=== PATIENT | female | born 1955 | race Caucasian/White ===

== ENCOUNTER → 2017-10-18 | Outpatient (CLI) | payer BC ==
--- NOTE | 2017-10-19 13:54 | MM ---
Reason for exam: screening (asymptomatic). Last mammogram was performed 1 year and 9 months ago. History: Patient is postmenopausal. Took estrogen for 4 years beginning at age 39. Physical Findings: A clinical breast exam by your physician is recommended on an annual basis and results should be correlated with mammographic findings. MG Screening Mammo w CAD Bilateral CC and MLO view(s) were taken. Prior study comparison: January 13, 2016, bilateral MG 3d screening mammo w/cad. August 04, 2013, [facility] DIGITAL RIGHT MAMMOGRAM w/CAD. The breast tissue is heterogeneously dense. This may lower the sensitivity of mammography. There are there are 3 right upper outer quadrant and upper central right breast masses appearing stable from 2016. There is a benign left oil cyst and bilateral benign calcifications. No suspicious abnormality. No significant changes when compared with prior studies. ASSESSMENT: Benign, BI-RAD 2 RECOMMENDATION: Routine screening mammogram of both breasts in 1 year.
== END | disposition home or self-care (01) ==
LOC: RADMAMWWP 12:51
PROVIDERS: ATTEND Family Medicine
DX: Z12.31 Encounter for screening mammogram for malignant neoplasm of breast (principal)
CPT/HCPCS: 77067

== ENCOUNTER 2018-03-08 08:36 | Day surgery (SDC) | payer BC ==
[2018-03-02 08:56] VITALS: BMI 33.6
[~2018-03-08 08:36] MED LIST: LACTATED RINGERS 1,000 ML IV SCH; LIDOCAINE 1% 20 ML VIAL (10MG/ML) FOR IV START INTRADERMA PRN
[2018-03-08 09:23] VITALS: RESP 16; TEMP 97
[2018-03-08] MEDS ORDERED: PROPOFOL 10 MG/ML 20 ML VIAL IV ONE (09:27)
[2018-03-08] MEDS ORDERED: LIDOCAINE 1% INJ 10MG/ML (20 ML MDV) ONE (09:27)
--- NOTE | 2018-03-08 09:37 | P.GSHP ---
History of Present Illness H&P Date: 03/08/18 Chief Complaint: GERD 's is a 63-year-old female referred from Dr. Jaquez. Patient has safer EGD. She 's had issues with GERD. Past Medical History Past Medical History: GERD/Reflux, Hyperlipidemia History of Any Multi-Drug Resistant Organisms: None Reported Past Surgical History: Joint Replacement, Orthopedic Surgery Additional Past Surgical History / Comment(s): BILAT TKA. BILAT BUNIONECTOMY. COLONOSCOPY AND EGD Past Anesthesia/Blood Transfusion Reactions: No Reported Reaction Smoking Status: Former smoker - Past Family History Mother Family Medical History: No Reported History Medications and Allergies Home Medications Medication Instructions Recorded Confirmed Type Atorvastatin [Lipitor] 20 mg PO DAILY 03/02/18 03/02/18 History Omeprazole 20 mg PO DAILY 03/02/18 03/02/18 History Allergies Allergy/AdvReac Type Severity Reaction Status Date / Time METAL Allergy ITCHING Uncoded 03/08/18 09:14 AND RASH Surgical - Exam Vital Signs Temp Pulse Resp BP Pulse Ox 97 F L 62 16 133/71 98 03/08/18 09:15 03/08/18 09:15 03/08/18 09:15 03/08/18 09:15 03/08/18 09:15 - General well developed, no distress - Eyes PERRL - ENT normal pinna - Neck no masses - Respiratory normal expansion - Cardiovascular Rhythm: regular Assessment and Plan Assessment: GERD. We'll perform EGD.
--- NOTE | 2018-03-08 09:44 | P.OP ---
Date of Procedure: 03/08/18 Preoperative Diagnosis: EGD Postoperative Diagnosis: Antral gastritis Mild esophagitis Procedure(s) Performed: EGD Anesthesia: MAC Surgeon: Ajay Edward Pathology: other (Antrum, esophagus) Condition: stable Disposition: PACU Description of Procedure: Patient's placed on the endoscopy table in the lateral position. She received IV sedation. The gastroscope placed oropharynx passed in the esophagus and stomach. Scope was then placed through the pylorus. The first and second portion of the duodenum appeared normal. Scope was then brought back the antrum and this appeared mildly inflamed. A biopsies performed. Scope was unretroflexed and remainder some appeared normal. The GE junction was at 39 cm. A significant hiatal hernia could not be seen. The distal esophagus appeared mildly inflamed and a biopsies performed. The proximal esophagus appeared normal. Scope was withdrawn for patient.
[2018-03-08 10:08] VITALS: BP 110/72; PULSE 72
== END 2018-03-08 10:48 | disposition home or self-care (01) ==
LOC: ORWHC2ENDO 08:36
PROVIDERS: ATTEND Surgery
DX: K21.0 Gastro-esophageal reflux disease with esophagitis (principal); K29.50 Unspecified chronic gastritis without bleeding; E78.5 Hyperlipidemia, unspecified; Z91.09 Other allergy status, other than to drugs and biological substances; Z79.899 Other long term (current) drug therapy; Z87.891 Personal history of nicotine dependence; Z96.653 Presence of artificial knee joint, bilateral
CPT/HCPCS: 43239; J2001; J2704; 88305

== ENCOUNTER → 2018-04-01 | Outpatient (CLI) | payer BC ==
--- NOTE | 2018-04-01 12:59 | FL ---
ESOPHOGRAM. HISTORY: Dysphagia Esophagram was performed per the air contrast technique. The patient swallowed barium and effervesce nt crystals without difficulty or delay. Esophageal peristalsis and motility appear to be within normal limits. There is no evidence for filling defect, mass or diverticulum. Reducible sliding type hiatal hernia. Gastroesophageal junction appears generally. No definite reflux identified during the course of the examination. Subsequently single contrast cervical esophagram was performed which fails demonstrate evidence for a spiration penetration or mass. IMPRESSION: Reducible sliding type hiatal hernia. Gastroesophageal junction appears generally. No def inite reflux identified during the course of the examination.
== END ==
LOC: RADFLWHC 09:29
PROVIDERS: ATTEND Surgery
DX: K44.9 Diaphragmatic hernia without obstruction or gangrene (principal)
CPT/HCPCS: 74220

== ENCOUNTER → 2018-04-07 | Outpatient (CLI) | payer BC ==
[2018-04-07 16:12] LABS: Basophils # (A) 0.1 k/uL (0-0.2); Basophils % (A) 1 %; Eosinophils # (A) 0.2 k/uL (0-0.7); Eosinophils % (A) 2 %; HCT 38.5 % (34.0-46.0); HGB 12.3 gm/dL (11.4-16.0); Lymphocytes % (A) 33 %; MCH 29.7 pg (25.0-35.0); MCV 92.8 fL (80.0-100.0); Mean Platelet Volume 7.7; Monocytes # (A) 0.5 k/uL (0-1.0); Monocytes % (A) 6 %; Neutrophils # (A) 5.1 k/uL (1.3-7.7); Neutrophils % (A) 57 %; Platelet Count 346 k/uL (150-450); RBC 4.14 m/uL (3.80-5.40); RDW 13.4 % (11.5-15.5); WBC 8.9 k/uL (3.8-10.6)
== END | disposition home or self-care (01) ==
LOC: LABPAT 14:06
PROVIDERS: ATTEND Surgery
DX: Z01.810 Encounter for preprocedural cardiovascular examination (principal); Z01.812 Encounter for preprocedural laboratory examination
CPT/HCPCS: 85025; 93005

== ENCOUNTER 2018-04-11 08:07 | Inpatient (IN) | payer BC ==
[2018-04-06 10:52] VITALS: BMI 33.6
[~2018-04-11 08:07] MED LIST changes: +DEXAMETHASONE SOD PHOSPHATE 10 MG/ML 1 ML VIAL IV ONE; +HEPARIN SODIUM,PORCINE 5,000 UNIT/ML 1 ML VIAL SQ ONE; -LACTATED RINGERS 1,000 ML IV SCH; -LIDOCAINE 1% 20 ML VIAL (10MG/ML) FOR IV START INTRADERMA PRN; +MIDAZOLAM 2 MG/2 ML VIAL IV PRN; +ONDANSETRON 4 MG/2 ML VIAL IVP ONE; +ceFAZolin IN SWFI 2 GM/20 ML SYRINGE IVP ONE; +fentaNYL (PF) 50 MCG/ML 2 ML AMP IV PRN
[2018-04-11] MEDS: LACTATED RINGERS 1,000 ML IV SCH ×2 (08:36→11:49)
[2018-04-11] MEDS ORDERED: LIDOCAINE 1% 20 ML VIAL (10MG/ML) FOR IV START INTRADERMA ONE (08:36)
[2018-04-11] MEDS ORDERED: DEXAMETHASONE SOD PHOS (MDV) 100 MG/10 ML VIAL IVP ONE (08:37)
[2018-04-11] MEDS ORDERED: ONDANSETRON 4 MG/2 ML VIAL IVP ONE (08:38)
[2018-04-11] MEDS ORDERED: SCOPOLAMINE 1.5MG/72HR PATCH TRANSDERM ONE (08:39)
--- NOTE | 2018-04-11 09:27 | P.GSHP ---
History of Present Illness H&P Date: 04/11/18 Chief Complaint: GERD This is a 63-year-old female referred from Dr. Shantaun Jaquez. MThe patient has had long-standing problems with reflux esophagitis. The patient underwent recent EGD is found have evidence of esophagitis. Patient has been well informed on the procedure of laparoscopic Zahra fundoplication. The patient is aware the risk of the conversion to the open procedure, risk of injury to the stomach, liver and spleen. The patient is also a risk of recurrent GERD and dysphagia symptoms. The patient understands there is a postoperative diet of full liquids for 2 weeks after surgery. Past Medical History Past Medical History: GERD/Reflux, Hyperlipidemia History of Any Multi-Drug Resistant Organisms: None Reported Past Surgical History: Joint Replacement, Orthopedic Surgery Additional Past Surgical History / Comment(s): BILAT TKA. BILAT BUNIONECTOMY. COLONOSCOPY AND EGD Past Anesthesia/Blood Transfusion Reactions: No Reported Reaction Smoking Status: Former smoker - Past Family History Mother Family Medical History: No Reported History Medications and Allergies Home Medications Medication Instructions Recorded Confirmed Type Atorvastatin [Lipitor] 20 mg PO DAILY 03/02/18 04/06/18 History Omeprazole 20 mg PO DAILY 03/02/18 04/11/18 History Allergies Allergy/AdvReac Type Severity Reaction Status Date / Time METAL Allergy ITCHING Uncoded 04/11/18 08:22 AND RASH Surgical - Exam Vital Signs Temp Pulse Resp BP Pulse Ox 97.7 F 73 18 141/70 98 04/11/18 08:28 04/11/18 08:28 04/11/18 08:28 04/11/18 08:28 04/11/18 08:28 - General well developed, well nourished - Eyes PERRL - ENT normal pinna - Neck no masses - Respiratory normal expansion - Cardiovascular Rhythm: regular - Abdomen Abdomen: soft, non tender Assessment and Plan Assessment: GERD. We'll perform laparoscopic Zahra fundoplication.
[2018-04-11] MEDS ORDERED: VECURONIUM 10 MG VIAL IV ONE (10:03)
[2018-04-11] MEDS ORDERED: NEOSTIGMINE 1 MG/ML 10 ML VIAL ONE (10:03)
[2018-04-11] MEDS ORDERED: LIDOCAINE 1% INJ 10MG/ML (20 ML MDV) ONE (10:03)
[2018-04-11] MEDS ORDERED: MIDAZOLAM 2 MG/2 ML VIAL ONE (10:03)
[2018-04-11] MEDS ORDERED: GLYCOPYRROLATE 0.2 MG/ML 2 ML VIAL ONE (10:03)
[2018-04-11] MEDS ORDERED: SUCCINYLCHOLINE CHLORIDE VIAL 200 MG/10 ML VIAL IV ONE (10:03)
[2018-04-11] MEDS ORDERED: PROPOFOL 10 MG/ML 20 ML VIAL IV ONE (10:03)
[2018-04-11] MEDS ORDERED: fentaNYL (PF) 50 MCG/ML 2 ML AMP ONE (10:03)
[2018-04-11] MEDS ORDERED: BUPIVACAIN-EPI 0.25%-1:200,000 30 ML VIAL SQ ONE ×2 (10:21→10:24)
[2018-04-11] MEDS: ONDANSETRON 4 MG/2 ML VIAL IVP PRN ×2 (11:40→19:20)
[2018-04-11] MEDS: D5-0.45% NACL WITH KCL 20MEQ/L 1,000 ML IV SCH ×2 (12:29→21:12)
[2018-04-11] MEDS: HYDROmorphone 1 MG/ML 1 ML SYRINGE IVP PRN ×2 (13:13→16:59)
--- NOTE | 2018-04-11 14:00 | P.CONS ---
History of Present Illness - Reason for Consult Elevated blood pressure - History of Present Illness 63-year-old pleasant female admitted for elective Zahra's fundoplication thoracic, and surgery is still having nausea pain in the retrosternal epigastric area from the surgery and the gas insufflation. Patient blood pressure is bit elevated secondary to pain. Does not have any history of hypertension. Patient denied any fever chills dysuria cough. Review of Systems REVIEW OF SYSTEMS: CONSTITUTIONAL: No fever, no malaise, no fatigue. HEENT: No recent visual problems or hearing problems. Denied any sore throat. CARDIOVASCULAR: No chest pain, orthopnea, PND, no palpitations, no syncope. PULMONARY: No shortness of breath, no cough, no hemoptysis. GASTROINTESTINAL: No diarrhea, no vomiting, no abdominal pain. Normoactive bowel sounds. NEUROLOGICAL: No headaches, no weakness, no numbness. HEMATOLOGICAL: Denies any bleeding or petechiae. GENITOURINARY: Denies any burning micturition, frequency, or urgency. MUSCULOSKELETAL/RHEUMATOLOGICAL: Denies any joint pain, swelling, or any muscle pain. ENDOCRINE: Denies any polyuria or polydipsia. The rest of the 14-point review of systems is negative. Past Medical History Past Medical History: GERD/Reflux, Hyperlipidemia History of Any Multi-Drug Resistant Organisms: None Reported Past Surgical History: Joint Replacement, Orthopedic Surgery Additional Past Surgical History / Comment(s): BILAT TKR. BILAT BUNIONECTOMY. COLONOSCOPY AND EGD Past Anesthesia/Blood Transfusion Reactions: No Reported Reaction Past Psychological History: No Psychological Hx Reported Smoking Status: Former smoker Past Alcohol Use History: None Reported Additional Past Alcohol Use History / Comment(s): QUIT SMOKING 2011 Past Drug Use History: None Reported - Past Family History Mother Family Medical History: No Reported History Medications and Allergies Home Medications Medication Instructions Recorded Confirmed Type Atorvastatin [Lipitor] 20 mg PO DAILY 03/02/18 04/11/18 History Omeprazole 20 mg PO DAILY 03/02/18 04/11/18 History Allergies Allergy/AdvReac Type Severity Reaction Status Date / Time METAL Allergy ITCHING Uncoded 04/11/18 08:22 AND RASH Physical Exam Vitals: Vital Signs Temp Pulse Pulse Resp BP BP Pulse Ox 04/11/18 13:20 98.0 F 69 16 175/95 95 04/11/18 12:50 97.6 F 73 16 158/71 96 04/11/18 12:35 98.2 F 71 16 165/79 95 04/11/18 12:20 97.9 F 62 16 150/76 97 04/11/18 12:05 97.7 F 63 16 157/73 96 04/11/18 11:45 61 16 168/77 97 04/11/18 11:30 60 16 167/73 100 04/11/18 11:15 65 16 173/80 100 04/11/18 11:04 97.7 F 65 16 178/75 100 04/11/18 08:28 97.7 F 73 18 141/70 98 Intake and Output 04/10/18 04/11/18 04/11/18 22:59 06:59 14:59 Intake Total 1100 Output Total 305 Balance 795 Intake: IV 1100 Output: Urine 300 Estimated Blood Loss 5 PHYSICAL EXAMINATION: GENERAL: The patient is alert and oriented x3, not in any acute distress. Obese HEENT: Pupils are round and equally reacting to light. EOMI. No scleral icterus. No conjunctival pallor. Normocephalic, atraumatic. No pharyngeal erythema. No thyromegaly. CARDIOVASCULAR: S1 and S2 present. No murmurs, rubs, or gallops. PULMONARY: Chest is clear to auscultation, no wheezing or crackles. ABDOMEN: Soft, nontender, nondistended, normoactive bowel sounds. No palpable organomegaly. MUSCULOSKELETAL: No joint swelling or deformity. EXTREMITIES: No cyanosis, clubbing, or pedal edema. NEUROLOGICAL: Gross neurological examination did not reveal any focal deficits. SKIN: No rashes. Assessment and Plan Plan: -Elevated blood pressure: Secondary to pain , lateral for any antiplatelet medications at this time. -Hyperlipidemia continue with atorvastatin -Gastroesophageal reflux disease status post Zahra fundoplication pain management and DVT prophylaxis as per primary service.
[2018-04-11] MEDS: FAMOTIDINE 20 MG/2 ML VIAL IV SCH (21:12)
[2018-04-12] MEDS: HYDROmorphone 1 MG/ML 1 ML SYRINGE IVP PRN (04:58)
[2018-04-12] MEDS ORDERED: HYDROcodone/APAP 5-325MG 1 EACH TAB PO PRN (08:37)
--- NOTE | 2018-04-12 09:01 | FL ---
EXAMINATION TYPE: FL esophagus cervic/pharynx DATE OF EXAM: 04/12/2018 HISTORY: Post Jose fundoplasty COMPARISON: NONE TECHNIQUE: A single contrast esophagram is performed utilizing 20 cc Isovue-370. 33 seconds of fluor oscopy time. FINDINGS: There is delay in passage of contrast at the level the GE junction into the stomach. 10 min shayne post delay demonstrates complete emptying into the stomach and small bowel. Left basilar atelecta sis noted. A tiny amount of free air cannot be excluded suspected to be postsurgical.. IMPRESSION: 1. There is moderate to severe delay at the GE junction. At 10 minutes there is complete emptying of contrast in the stomach and small bowel.
[2018-04-12] MEDS: ENOXAPARIN 40 MG/0.4 ML SYRINGE SQ SCH (09:04)
[2018-04-12] MEDS: FAMOTIDINE 20 MG/2 ML VIAL IV SCH ×2 (09:05→20:43)
[2018-04-12] MEDS: ATORVASTATIN 20 MG TAB PO SCH (09:27)
[2018-04-12] MEDS: D5-0.45% NACL WITH KCL 20MEQ/L 1,000 ML IV SCH ×3 (10:13→23:02)
--- NOTE | 2018-04-12 10:58 | P.PN ---
Subjective Progress Note Date: 04/12/18 63-year-old female seen at the bedside. Patient up ambulatory on the unit. States did develop slight difficult swallowing last night patient did have a upper GI esophagram status post bridgette fundoplasty done on April 11 . Reviewing the upper GI report show moderate to severe delay at the GE junction Objective - Vital Signs Vital signs: Vital Signs Temp 98.2 F 04/12/18 08:55 Pulse 74 04/12/18 08:55 Resp 20 04/12/18 08:55 BP 129/76 04/12/18 08:55 Pulse Ox 93 L 04/12/18 08:55 Intake & Output 04/11/18 04/12/18 04/12/18 18:59 06:59 18:59 Intake Total 1100 Output Total 305 Balance 795 Weight 97.522 kg Intake: IV 1100 Output: Urine 300 Estimated Blood Loss 5 Other: Voiding Method Toilet # Voids 1 1 - Exam Physical exam 63-year-old female up ambulating on the denies dizziness lightheadedness or shortness of breath Lungs adequate air movement bilaterally and 94% sat Heart S1-S2 audible heart rate in the 70s denying chest pain Abdomen surgical incision site dressings dry soft nondistended states did note difficulty "felt like something was getting stuck in my throat nitro to drink water nontender passing gas no nausea no vomiting Extremities no edema Assessment and Plan Assessment: Impression Long-standing problem with reflux esophagitis A recent EGD showed evidence of esophagitis Hyperlipidemia Esophageal reflux symptomatic failed outpatient treatment Postop April laparoscopic Zahra fundoplication Postop FL esophagus follow through showed moderate to severe delay at the GE junction Plan We'll hold discharge for today Continue postop surgical care Currently nothing by mouth with IV fluid for hydration Further recommendations pending DVT and GI prophylaxis The above impression and plan of care have been discussed and directed by signing physician. Yancy Israel nurse practitioner acting as scribe for signing physician.
--- NOTE | 2018-04-12 13:03 | P.PN ---
Subjective No overnight events patient had some slight difficulty in swallowing. Not nausea yesterday Objective - Vital Signs Vital signs: Vital Signs Temp 98.5 F 04/12/18 12:05 Pulse 61 04/12/18 12:05 Resp 15 04/12/18 12:05 BP 101/70 04/12/18 12:05 Pulse Ox 96 04/12/18 12:05 Intake & Output 04/11/18 04/12/18 04/12/18 18:59 06:59 18:59 Intake Total 1100 Output Total 305 Balance 795 Weight 97.522 kg Intake: IV 1100 Output: Urine 300 Estimated Blood Loss 5 Other: Voiding Method Toilet # Voids 1 1 - Exam PHYSICAL EXAMINATION: GENERAL: The patient is alert and oriented x3, not in any acute distress. Obese HEENT: Pupils are round and equally reacting to light. EOMI. No scleral icterus. No conjunctival pallor. Normocephalic, atraumatic. No pharyngeal erythema. No thyromegaly. CARDIOVASCULAR: S1 and S2 present. No murmurs, rubs, or gallops. PULMONARY: Chest is clear to auscultation, no wheezing or crackles. ABDOMEN: Soft, nontender, nondistended, normoactive bowel sounds. No palpable organomegaly. MUSCULOSKELETAL: No joint swelling or deformity. EXTREMITIES: No cyanosis, clubbing, or pedal edema. NEUROLOGICAL: Gross neurological examination did not reveal any focal deficits. SKIN: No rashes. Assessment and Plan Plan: -Elevated blood pressure: Secondary to pain , lateral for any antiplatelet medications at this time. -Hyperlipidemia continue with atorvastatin -Gastroesophageal reflux disease status post Zahra fundoplication pain management and DVT prophylaxis as per primary service.
[2018-04-12 20:09] VITALS: RESP 16
[2018-04-12] MEDS: LORazepam 2 MG/ML INJ IV PRN (20:43)
[2018-04-13] MEDS: LORazepam 2 MG/ML INJ IV PRN (00:10)
[2018-04-13] MEDS: ATORVASTATIN 20 MG TAB PO SCH (08:57)
[2018-04-13] MEDS: ENOXAPARIN 40 MG/0.4 ML SYRINGE SQ SCH (08:58)
[2018-04-13] MEDS: FAMOTIDINE 20 MG/2 ML VIAL IV SCH (08:58)
[2018-04-13] MEDS: D5-0.45% NACL WITH KCL 20MEQ/L 1,000 ML IV SCH (10:29)
--- NOTE | 2018-04-13 11:24 | P.DS ---
Providers Date of admission: 04/11/18 08:07 Expected date of discharge: 04/13/18 Attending physician: Ajay Edward Consults: 04/11/18 11:32 Consult Physician Routine Consulting Provider: Shantanu Jaquez Reason/Comments: Medical management Do you want consulting provider notified?: Yes Primary care physician: Shantanu [facility] Course: 63-year-old presented to undergo laparoscopic Zahra fundoplication for symptomatic esophagitis failed outpatient treatment. Patient has had a long- standing problem with reflux esophagitis. Underwent a recent EGD found evidence of esophagitis. Postop esophagram showed moderate to severe delay at the GE junction patient was monitored and on April 13 the symptoms had resolved was tolerating a liquid diet was felt to be appropriate to be discharged home Impression discharge diagnosis Long-standing problem with reflux esophagitis A recent EGD showed evidence of esophagitis Hyperlipidemia Esophageal reflux symptomatic failed outpatient treatment Postop April laparoscopic Zahra fundoplication Postop FL esophagus follow through showed moderate to severe delay at the GE junction unexpected suspect due to inflammation at surgical site The above impression and plan of care have been discussed and directed by signing physician. Yancy Israel nurse practitioner acting as scribe for signing physician. Plan - Discharge Summary Discharge Rx Participant: Yes New Discharge Prescriptions: New HYDROcodone/APAP 5-325MG [[place] 5-325] 1 each PO Q4HR PRN #12 tab PRN Reason: Pain Continue Atorvastatin [Lipitor] 20 mg PO DAILY Omeprazole 20 mg PO DAILY Discharge Medication List Atorvastatin [Lipitor] 20 mg PO DAILY 03/02/18 [History] Omeprazole 20 mg PO DAILY 03/02/18 [History] HYDROcodone/APAP 5-325MG [[place] 5-325] 1 each PO Q4HR PRN #12 tab 04/13/18 [Rx] Follow up Appointment(s)/Referral(s): Ajay Edward MD [STAFF PHYSICIAN] - 1 Week Activity/Diet/Wound Care/Special Instructions: No tub bath for six weeks. Shower daily. No lifting over 10 pounds for the next 6 weeks. May use ice packs to surgical site. No driving while taking narcotic for pain. Zahra clear liquid diet Discharge Disposition: HOME SELF-CARE
[2018-04-13 12:03] VITALS: BP 121/73; PULSE 92; TEMP 98.3
--- NOTE | 2018-04-15 12:50 | P.OP ---
Date of Procedure: 04/11/18 Preoperative Diagnosis: GERD Postoperative Diagnosis: GERD Procedure(s) Performed: Hiatal hernia Anesthesia: CANDELARIA Surgeon: Ajay Edward Estimated Blood Loss (ml): 5 Pathology: none sent Condition: stable Disposition: PACU Description of Procedure: HarThe patient was placed on the operating table in the supine position. The patient received general anesthesia. And was placed in dorsal lithotomy position. The patient was prepped and draped in the usual sterile fashion. The skin incision sites were anesthetized with 1% local Xylocaine. The skin was incised in the left periumbilical area and then using a blade less 5 mm trocar under direct visualization panel cavity was entered. After adequate insufflation the laparoscope was then placed into the peritoneal cavity. Next a 5 mm trochars placed in the right epigastric position. Another 5 millimeter trocar the right lateral position. Another 5 millimeter trocar in the left lateral position a 5 mm trocar is placed in the left epigastric position. And then the initial 5 mm trocar was exchanged for a 10 mm trocar. The left lateral lobe liver was retracted. The hernia was seen. The crural defect was then dissected using the Harmonic scissors device. A 360 crural dissection was performed the esophagus stomach was reduced back into the peritoneal Cavity. The crural defect was then closed using 2-0 Ethibond suture. Next the fundus of the stomach was mobilized using the [place] scissors device. and then a 58-[place] bougie dilator was placed oropharynx passed into the esophagus and stomach the fundal plication wrap was then performed by grasping the fundus posteriorly and bringing it around the esophagus and stomach fundoplication was then performed using 2-0 Ethibond suture. Care was taken that the fundal location rested over top of the intra-abdominal esophagus. There was no injury seen to the stomach or esophagus. The dilator was then withdrawn. The abdomen was irrigated there is no bleeding seen. The trochars were then withdrawn and then skin incision sites were closed using 3-0 Monocryl suture Steri-Strips are applied. Patient thought procedure well and sent to recovery room in stable condition.en
== END 2018-04-13 12:12 | disposition home or self-care (01) | DRG 328 ==
LOC: 2ORMAIN 08:07 → 6PED 10:53
PROVIDERS: ADMIT Surgery; ATTEND Surgery
PROC: 0BQT4ZZ Repair Diaphragm, Percutaneous Endoscopic Approach (ICD-10-PCS; 2018-04-11)
PROC: 0DV44ZZ Restriction of Esophagogastric Junction, Percutaneous Endoscopic Approach (ICD-10-PCS; principal; 2018-04-11 09:55)
DX: K21.0 Gastro-esophageal reflux disease with esophagitis (principal); K44.9 Diaphragmatic hernia without obstruction or gangrene; E78.5 Hyperlipidemia, unspecified; R03.0 Elevated blood-pressure reading, without diagnosis of hypertension; R13.10 Dysphagia, unspecified; Z79.899 Other long term (current) drug therapy; Z87.891 Personal history of nicotine dependence; Z96.653 Presence of artificial knee joint, bilateral; Z91.048 Other nonmedicinal substance allergy status
CPT/HCPCS: 74210

== ENCOUNTER 2020-02-11 10:43 | Emergency (ER) | payer MEDICARE, BC ==
[2020-02-11 10:54] VITALS: BP 128/75; PULSE 60; RESP 18; TEMP 98.5
--- NOTE | 2020-02-11 11:10 | ED ---
General Adult HPI - General Chief complaint: Eye Problems Stated complaint: lt eye problem Time Seen by Provider: 02/11/20 10:56 Source: patient, RN notes reviewed Mode of arrival: ambulatory Limitations: no limitations - History of Present Illness Initial comments: Patient is a pleasant 64-year-old female presenting to the emergency department with left eyelid swelling. Patient states it is mildly irritated, not painful. Patient states there may be a slight itch to it. Onset of symptoms was yesterday. Patient states there was some swelling in the upper medial portion and does question if they're potentially could've been some sort of bug bite there. No visual changes. Patient states she took Benadryl this morning and swelling has improved since that time. No discomfort of the eye itself. No redness of the eye. No history of similar symptoms previously. - Related Data Home Medications Medication Instructions Recorded Confirmed Atorvastatin [Lipitor] 20 mg PO DAILY 03/02/18 04/11/18 Omeprazole 20 mg PO DAILY 03/02/18 04/11/18 Previous Rx's Medication Instructions Recorded HYDROcodone/APAP 5-325MG [[place] 1 each PO Q4HR PRN #12 tab 04/13/18 5-325] Cephalexin [Keflex] 500 mg PO Q8HR 7 Days #21 cap 02/11/20 predniSONE [Deltasone] 20 mg PO BID #10 tab 02/11/20 Allergies Allergy/AdvReac Type Severity Reaction Status Date / Time METAL Allergy ITCHING Uncoded 02/11/20 10:49 AND RASH Review of Systems ROS Statement: Those systems with pertinent positive or pertinent negative responses have been documented in the HPI. ROS Other: All systems not noted in ROS Statement are negative. Constitutional: Denies: fever Eyes: Reports: as per HPI. Denies: eye pain, eye discharge, vision change ENT: Denies: ear pain Respiratory: Denies: cough Cardiovascular: Denies: chest pain Endocrine: Denies: fatigue Gastrointestinal: Denies: abdominal pain Genitourinary: Denies: dysuria Musculoskeletal: Denies: back pain Skin: Reports: as per HPI Neurological: Denies: weakness Past Medical History Past Medical History: GERD/Reflux, Hyperlipidemia History of Any Multi-Drug Resistant Organisms: None Reported Past Surgical History: Joint Replacement, Orthopedic Surgery Additional Past Surgical History / Comment(s): BILAT TKR. BILAT BUNIONECTOMY. COLONOSCOPY AND EGD. bridgette fundiplication Past Anesthesia/Blood Transfusion Reactions: No Reported Reaction Past Psychological History: No Psychological Hx Reported Smoking Status: Never smoker Past Alcohol Use History: None Reported Past Drug Use History: None Reported - Past Family History Mother Family Medical History: No Reported History General Exam Limitations: no limitations General appearance: alert, in no apparent distress Head exam: Present: normocephalic Eye exam: Present: PERRL, EOMI, periorbital swelling, other (Patient does have periorbital edema greatest in the upper eyelid and greater medially. There is mild light erythema. No tenderness.). Absent: scleral icterus, conjunctival injection, periorbital tenderness Neck exam: Present: normal inspection Respiratory exam: Present: normal lung sounds bilaterally Cardiovascular Exam: Present: regular rate, normal rhythm GI/Abdominal exam: Present: soft. Absent: tenderness Extremities exam: Present: normal inspection Neurological exam: Present: alert, CN II-XII intact Psychiatric exam: Present: normal affect, normal mood Skin exam: Present: other (Mild leg erythema left eyelid) Course Vital Signs 02/11/20 10:50 Temperature 98.5 F Pulse Rate 60 Respiratory 18 Rate Blood Pressure 128/75 O2 Sat by Pulse 99 Oximetry Medical Decision Making - Medical Decision Making Patient has clinical presentation more consistent with ALLERGIC reaction, possibly from bug bite rather than infection. In addition symptoms improved w ith Benadryl. Patient will be treated with continued antihistamines as well as steroids. Patient will be covered with antibiotics for the unlikelihood of early infection. Patient is made aware of this and need to return if symptoms change or worsen. Patient is also made aware of need for follow-up. Disposition Clinical Impression: Eyelid edema Disposition: HOME SELF-CARE Condition: Stable Instructions (If sedation given, give patient instructions): Insect Bite or Sting (ED), Allergies (ED) Additional Instructions: [facility] pharmacy. Please follow-up with primary care physician in the next day or 2 for recheck. Return for visual problems, fevers, drainage, pain, worsening symptoms or any other concerns. Continue [id number] antihistamines such as Benadryl or Claritin or Ebony for the next 5 days. Prescriptions: predniSONE [Deltasone] 20 mg PO BID #10 tab Cephalexin [Keflex] 500 mg PO Q8HR 7 Days #21 cap Is patient prescribed a controlled substance at d/c from ED?: No Referrals: Shantanu Jaquez DO [Primary Care Provider] - 1-2 days Time of Disposition: 11:06
== END 2020-02-11 11:25 | disposition home or self-care (01) ==
LOC: EC 10:43
DX: H02.844 Edema of left upper eyelid (principal); K21.9 Gastro-esophageal reflux disease without esophagitis; E78.5 Hyperlipidemia, unspecified; Z79.899 Other long term (current) drug therapy; Z91.048 Other nonmedicinal substance allergy status; Z96.653 Presence of artificial knee joint, bilateral
CPT/HCPCS: 99283

== ENCOUNTER → 2020-02-16 | Outpatient (CLI) | payer MEDICARE ==
--- NOTE | 2020-02-19 09:50 | MM ---
Reason for exam: screening (asymptomatic). Last mammogram was performed 2 years and 4 months ago. History: Patient is postmenopausal. Took estrogen for 4 years beginning at age 39. Physical Findings: A clinical breast exam by your physician is recommended on an annual basis and results should be correlated with mammographic findings. MG 3D Screening Mammo W/Cad Bilateral CC and MLO view(s) were taken. Prior study comparison: October 18, 2017, bilateral MG screening mammo w CAD. January 13, 2016, bilateral MG 3d screening mammo w/cad. The breast tissue is heterogeneously dense. This may lower the sensitivity of mammography. There is chronic nodularity bilaterally. There is no dominant lesion. No significant changes when compared with prior studies. ASSESSMENT: Benign, BI-RAD 2 RECOMMENDATION: Routine screening mammogram of both breasts in 1 year.
== END | disposition home or self-care (01) ==
LOC: RADMAMWWP 09:50
PROVIDERS: ATTEND Family Medicine
DX: Z12.31 Encounter for screening mammogram for malignant neoplasm of breast (principal)
CPT/HCPCS: 77063; 77067

== ENCOUNTER 2021-02-27 09:05 | Day surgery (SDC) | payer MEDICARE, BC ==
[2021-02-24 14:39] VITALS: BMI 30.5
[~2021-02-27 09:05] MED LIST changes: -DEXAMETHASONE SOD PHOSPHATE 10 MG/ML 1 ML VIAL IV ONE; -HEPARIN SODIUM,PORCINE 5,000 UNIT/ML 1 ML VIAL SQ ONE; +LACTATED RINGERS 1,000 ML IV SCH; -MIDAZOLAM 2 MG/2 ML VIAL IV PRN; -ONDANSETRON 4 MG/2 ML VIAL IVP ONE; -ceFAZolin IN SWFI 2 GM/20 ML SYRINGE IVP ONE; -fentaNYL (PF) 50 MCG/ML 2 ML AMP IV PRN
[2021-02-27] MEDS ORDERED: LACTATED RINGERS 1,000 ML IV ONE (09:42)
[2021-02-27] MEDS ORDERED: PROPOFOL 10 MG/ML 20 ML VIAL IV ONE (10:32)
[2021-02-27] MEDS ORDERED: LIDOCAINE 1% INJ 10MG/ML (20 ML MDV) ONE (10:32)
--- NOTE | 2021-02-27 10:34 | P.GSHP ---
History of Present Illness H&P Date: 02/27/21 Chief Complaint: Screening colonoscopy This is a 66-year-old female who presents today for screening colonoscopy. Patient denies any significant GI complaints. Past Medical History Past Medical History: GERD/Reflux, Hyperlipidemia History of Any Multi-Drug Resistant Organisms: None Reported Past Surgical History: Joint Replacement, Orthopedic Surgery Additional Past Surgical History / Comment(s): 2 joint replacements -knee replacements. BILAT BUNIONECTOMY. COLONOSCOPY AND EGD, Zahra fundoplication Past Anesthesia/Blood Transfusion Reactions: No Reported Reaction Smoking Status: Former smoker - Past Family History Mother Family Medical History: No Reported History Medications and Allergies Home Medications Medication Instructions Recorded Confirmed Type Atorvastatin [Lipitor] 20 mg PO DAILY 03/02/18 02/24/21 History Cholecalciferol (Vitamin D3) 12.5 mcg PO DAILY 02/24/21 02/24/21 History [Vitamin D3 (500 Iu/5 ML)] Escitalopram Oxalate [Lexapro] 20 mg PO DAILY 02/24/21 02/24/21 History Multivitamins, Thera [Multivitamin 1 tab PO DAILY 02/24/21 02/24/21 History (formulary)] Zinc 50 mg PO DAILY 02/24/21 02/24/21 History Allergies Allergy/AdvReac Type Severity Reaction Status Date / Time METAL Allergy ITCHING Uncoded 02/24/21 14:27 AND RASH Surgical - Exam - General well developed, well nourished, no distress - Eyes PERRL - ENT normal pinna - Neck no masses - Respiratory normal expansion - Cardiovascular Rhythm: regular - Abdomen Abdomen: soft, non tender Assessment and Plan Assessment: We'll perform screening colonoscopy.
--- NOTE | 2021-02-27 10:45 | P.OP ---
Date of Procedure: 02/27/21 Preoperative Diagnosis: Screening colonoscopy Postoperative Diagnosis: Normal colonoscopy Procedure(s) Performed: Colonoscopy Anesthesia: MAC Surgeon: Ajay Edward Pathology: none sent Condition: stable Disposition: PACU Description of Procedure: N PROCEDURE: The patient was placed on the endoscopy table in the lateral position. Digital rectal examination was performed which revealed no abnormalities. The prostate was symmetrical without nodules. Flexible colonoscope was then placed in the patient's anus and passed throughout the entire colon. The ileocecal valve was visualized. The cecum, ascending, transverse, descending and sigmoid colon were normal. The rectum was normal as well. There were no masses, polyps or diverticula noted in the entire colon. SUMMARY OF FINDINGS: Normal colonoscopy.
[2021-02-27 11:25] VITALS: BP 107/54; PULSE 58; RESP 20
== END 2021-02-27 11:27 | disposition home or self-care (01) ==
LOC: ORWHC2ENDO 09:05
PROVIDERS: ATTEND Surgery
DX: Z12.11 Encounter for screening for malignant neoplasm of colon (principal); K21.9 Gastro-esophageal reflux disease without esophagitis; E78.5 Hyperlipidemia, unspecified; Z87.891 Personal history of nicotine dependence; Z79.899 Other long term (current) drug therapy
CPT/HCPCS: J2001; J2704; G0121; 45378

== ENCOUNTER 2021-10-21 07:48 | Day surgery (SDC) | payer MEDICARE, BC ==
[2021-10-21] MEDS ORDERED: ALPRAZolam 0.5 MG TAB PO STA (08:33)
[2021-10-21 09:21] VITALS: RESP 18; TEMP 97.8
[2021-10-21 10:39] VITALS: BP 101/65; PULSE 74
--- NOTE | 2021-10-21 10:56 | US ---
ULTRASOUND GUIDED CORE BIOPSY RIGHT CHEST\AXILLA LYMPH NODE OR MASS: CLINICAL HISTORY: Right chest\axilla mass request for biopsy. FINDINGS: The procedure was explained to the patient. The risks, complications, benefits and alternatives were discussed and any questions were answered. Informed consent was obtained. Patient was placed supin e on the ultrasound table and prepped and draped in the usual sterile fashion. Utilizing a 18 gauge biopsy needle, four passes were made into the requested mass. Patient was stable throughout the procedure. Pathology is pending. All elements of maximal barrier technique were utilized. IMPRESSION: 1. Successful ultrasound guided core biopsy right chest wall, axilla mass.
== END 2021-10-21 10:15 | disposition home or self-care (01) ==
LOC: RADPROMAIN 07:48
PROVIDERS: ATTEND Internal Medicine Hematology & Oncology
DX: R59.0 Localized enlarged lymph nodes (principal); C77.9 Secondary and unspecified malignant neoplasm of lymph node, unspecified
CPT/HCPCS: 38505; 76942; 88305; 88341; 88342

== ENCOUNTER 2021-12-05 11:25 | Day surgery (SDC) | payer BC, MEDICARE ==
[2021-12-04 14:35] VITALS: BMI 29.9
[~2021-12-05 11:25] MED LIST changes: +ACETAMINOPHEN TAB 500 MG TAB PO PRN; +DEXAMETHASONE SOD PHOSPHATE 4 MG/ML 1 ML VIAL IV ONE; +HEPARIN SODIUM,PORCINE/PF 5,000 UNIT/0.5 ML SYRINGE SQ PRN; +HYDROmorphone 0.5 MG/0.5 ML SYRINGE IVP PRN; +MIDAZOLAM 2 MG/2 ML VIAL IV PRN; +ONDANSETRON 4 MG/2 ML VIAL IVP ONE; +Pre Op ABX Message 1 EACH MISC MISCELLANE ONE
--- NOTE | 2021-12-05 12:59 | P.GSHP ---
History of Present Illness H&P Date: 12/05/21 Chief Complaint: Lung cancer 66-year-old female recently diagnosed with right-sided lung cancer. Patient has initiated neoadjuvant chemo and immunotherapy. Doing well. Her pain is resolved since starting her treatment. Here today for Port-A-Cath as the patient has poor IV access. Past Medical History Past Medical History: Cancer, Hyperlipidemia Additional Past Medical History / Comment(s): Lung History of Any Multi-Drug Resistant Organisms: None Reported Past Surgical History: Joint Replacement, Orthopedic Surgery Additional Past Surgical History / Comment(s): Roni knee replacements. BILAT BUNIONECTOMY. COLONOSCOPY AND EGD, Zahra fundoplication Past Anesthesia/Blood Transfusion Reactions: Postoperative Nausea & Vomiting (PONV) Smoking Status: Former smoker - Past Family History Mother Family Medical History: No Reported History Medications and Allergies Home Medications Medication Instructions Recorded Confirmed Type Atorvastatin [Lipitor] 20 mg PO DAILY 03/02/18 12/05/21 History Cholecalciferol (Vitamin D3) 12.5 mcg PO DAILY 02/24/21 12/04/21 History [Vitamin D3 (500 Iu/5 ML)] Escitalopram Oxalate [Lexapro] 20 mg PO DAILY 02/24/21 12/05/21 History Calcium Carbonate [Calcium] 600 mg PO DAILY 12/04/21 12/04/21 History Allergies Allergy/AdvReac Type Severity Reaction Status Date / Time nickel Allergy Rash/Hives Verified 12/05/21 12:49 METAL Allergy ITCHING Uncoded 12/05/21 11:42 AND RASH Surgical - Exam Vital Signs Temp Pulse Resp BP Pulse Ox 97.1 F L 92 16 161/72 97 12/05/21 11:53 12/05/21 11:53 12/05/21 11:53 12/05/21 11:53 12/05/21 11:53 Physical exam: General: Well-developed, well-nourished HEENT: Normocephalic, sclerae nonicteric Abdomen: Nontender, nondistended Extremities: No edema Neuro: Alert and oriented Assessment and Plan (1) Lung cancer Narrative/Plan: 66-year-old female with lung cancer. We'll proceed with Port-A-Cath placement at this time. Risks of bleeding, infection, DVT, pneumothorax, catheter malfunction, anesthesia related complications were discussed. The patient understands and wishes to proceed. Current Visit: Yes Status: Acute Code(s): C34.90 - MALIGNANT NEOPLASM OF UNSP PART OF UNSP BRONCHUS OR LUNG SNOMED Code(s): 964446028
[2021-12-05] MEDS ORDERED: LIDOCAINE 2% INJ 20 MG/ML (2 ML VIAL) ONE (13:07)
[2021-12-05] MEDS ORDERED: MIDAZOLAM 2 MG/2 ML VIAL ONE (13:07)
[2021-12-05] MEDS ORDERED: fentaNYL (PF) 50 MCG/ML 2 ML AMP ONE (13:07)
[2021-12-05] MEDS ORDERED: PROPOFOL 10 MG/ML 20 ML VIAL IV ONE (13:07)
[2021-12-05] MEDS ORDERED: PHENYLEPHRINE-0.9% NACL SYG 1,000 MCG/10 ML SYRINGE ONE (13:07)
[2021-12-05] MEDS ORDERED: KETOROLAC 15 MG/ML 1 ML VIAL ONE (13:07)
[2021-12-05] MEDS ORDERED: LIDOCAINE 1% INJ 10MG/ML (20 ML MDV) SQ ONE (13:10)
[2021-12-05 14:06] VITALS: TEMP 98.5
--- NOTE | 2021-12-05 14:17 | FL ---
Fluoroscopy INDICATION: Pain FINDINGS: Fluoroscopy time: 25 seconds. Images obtained: 2. IMPRESSIONS: 1. Documentation of fluoroscopy.
--- NOTE | 2021-12-05 14:21 | XR ---
EXAMINATION TYPE: XR chest 1V portable DATE OF EXAM: 12/05/2021 COMPARISON: 08/05/2017 INDICATION: Line placement TECHNIQUE: Single frontal view of the chest is obtained. FINDINGS: The heart size is normal. The pulmonary vasculature is normal. Right upper lobe infiltrate is present. There is placement of a right central venous catheter with ti p in the superior vena cava region IMPRESSION: 1. Right upper lobe infiltrate. Follow-up to clearing is recommended. 2. Placement of a right central venous catheter with the tip in the superior vena cava region. No pne umothorax is evident.
[2021-12-05] MEDS ORDERED: NALOXONE 0.4 MG/ML 1 ML VIAL IV PRN ×2 (14:42)
--- NOTE | 2021-12-05 14:42 | P.OP ---
Date of Procedure: 12/05/21 Procedure(s) Performed: PREOPERATIVE DIAGNOSIS: Lung cancer POSTOPERATIVE DIAGNOSIS: Same PROCEDURE: Port-A-Cath placement with fluoroscopic and ultrasound guidance SURGEON: Onelia EBL: Minimal ANESTHESIA: Sedation COMPLICATIONS: None OPERATIVE PROCEDURE: Patient was brought and placed on the operative table in the supine position. The patient was sedated per anesthesia that time. The chest and neck were prepped and draped in usual sterile fashion. The ultrasound probe was used to identify the location of the right internal jugular vein. The skin was localized with lidocaine. The Seldinger needle was advanced into the IJ under ultrasound guidance. The wire was advanced through the needle under fluoroscopic guidance into the superior vena cava. A port pocket was created in the right infraclavicular location. The catheter was tunneled from the wire entrance site to the port pocket. The port was then connected to the catheter. The dilator introducer was threaded over the guidewire. The guidewire and dilator were then removed. The catheter was advanced through the introducer and introducer was then removed. The tip was seen to be in the right atrial junction via fluoroscopy. A picture of the radiograph showing the tip at the radial digital junction was taken. Port was flushed with both saline and a Hep- Lock solution. There was good flow both in and out of the port. The port was sutured in underlying tissues using 3-0 silk sutures. The subcutaneous tissues were reapproximated using 3-0 Vicryl sutures and the skin at both locations using 4-0 Monocryl sutures. Skin glue and sterile dressings then applied. DISPOSITION: Stable to recovery room
[2021-12-05 14:55] VITALS: RESP 20
[2021-12-05 15:18] VITALS: BP 154/83; PULSE 74
== END 2021-12-05 15:22 | disposition home or self-care (01) ==
LOC: OR 11:25
PROVIDERS: ATTEND Surgery
DX: Z45.2 Encounter for adjustment and management of vascular access device (principal); C34.91 Malignant neoplasm of unspecified part of right bronchus or lung; E78.5 Hyperlipidemia, unspecified; Z87.891 Personal history of nicotine dependence; Z96.653 Presence of artificial knee joint, bilateral
CPT/HCPCS: 36561; 77001; 71045; C1788; J2250; J1100; J0690; J2405; J2001 ×2; J3010; J1642; J1885; J2370; J2704; J1644

== ENCOUNTER 2023-03-26 15:12 | Inpatient (IN) | payer MEDICARE ==
--- NOTE | 2023-03-26 15:37 | ED ---
SOB HPI - General Chief Complaint: Shortness of Breath Stated Complaint: SOB Time Seen by Provider: 03/26/23 15:25 Source: patient Mode of arrival: ambulatory Limitations: no limitations - History of Present Illness Initial Comments: Patient is a 68-year-old woman who presents to have evaluation of shortness of breath. The patient notes that she was diagnosed with lung cancer in 2021. She states she had to rounds of chemotherapy, she had treatment. 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 The patient has been feeling short of breath for a little over a week. She saw her doctor in clinic and completed a course of levofloxacin and prednisone. She was not feeling much better so they did send her for an x-ray this morning, and she presents here to have further evaluation. The patient has not noted fever or chills. She states she does have occasional cough but no sputum. She states the cough is not very pronounced. She has not noted leg pain or swelling. No change in urination or bowel movements. The patient reports that she has had on waking during the past week a couple of episodes of upper substernal pains with radiation to jaw, but that that resolved shortly after she got up. She states there has not been exertional chest pain. She does have exertional dyspnea MD Complaint: shortness of breath, cough Onset/Timin -: week(s) Severity scale (1-10): 0 Improves With: nothing Worsens With: exertion Known History Of: other (Lung cancer) Associated Symptoms: denies other symptoms Treatments Prior to Arrival: other - Related Data Home Oxygen Therapy: No Home Medications Medication Instructions Recorded Confirmed Atorvastatin [Lipitor] 20 mg PO HS 03/02/18 03/26/23 Escitalopram Oxalate [Lexapro] 20 mg PO DAILY 02/24/21 03/26/23 Levothyroxine Sodium [Synthroid] 75 mcg PO DAILY 03/26/23 03/26/23 Previous Rx's Medication Instructions Recorded Apixaban Initiation Dose--VTE 5 mg PO BID #74 tab 03/29/23 [Eliquis Initiation Dosing for VTE Treatment] Apixaban [Eliquis] 10 mg PO BID tab 03/29/23 Allergies Allergy/AdvReac Type Severity Reaction Status Date / Time nickel Allergy Rash/Hives Verified 03/26/23 16:29 METAL Allergy ITCHING Uncoded 03/26/23 16:29 AND RASH Review of Systems ROS Statement: Those systems with pertinent positive or pertinent negative responses have been documented in the HPI. ROS Other: All systems not noted in ROS Statement are negative. Constitutional: Denies: fever, chills, weakness Respiratory: Reports: as per HPI, cough, dyspnea. Denies: wheezes, hemoptysis Cardiovascular: Reports: as per HPI, chest pain, dyspnea on exertion. Denies: palpitations, edema, syncope Gastrointestinal: Denies: abdominal pain, vomiting, diarrhea Genitourinary: Denies: dysuria, hematuria Musculoskeletal: Denies: back pain Skin: Denies: rash Neurological: Denies: headache, weakness, numbness Past Medical History Past Medical History: Cancer, Hyperlipidemia Additional Past Medical History / Comment(s): Lung History of Any Multi-Drug Resistant Organisms: None Reported Past Surgical History: Joint Replacement, Orthopedic Surgery Additional Past Surgical History / Comment(s): Roni knee replacements. BILAT BUNIONECTOMY. COLONOSCOPY AND EGD, Zahra fundoplication Past Anesthesia/Blood Transfusion Reactions: Postoperative Nausea & Vomiting (PONV) Past Psychological History: No Psychological Hx Reported Smoking Status: Former smoker Past Alcohol Use History: None Reported Past Drug Use History: None Reported - Past Family History Mother Family Medical History: No Reported History General Exam Limitations: no limitations General appearance: alert, in no apparent distress Head exam: Present: atraumatic, normocephalic Eye exam: Present: normal appearance. Absent: scleral icterus, conjunctival injection Neck exam: Present: normal inspection Respiratory exam: Present: normal lung sounds bilaterally. Absent: respiratory distress, wheezes, rales, rhonchi, stridor Cardiovascular Exam: Present: regular rate, normal rhythm, normal heart sounds. Absent: systolic murmur, diastolic murmur, rubs, gallop GI/Abdominal exam: Present: soft. Absent: distended, tenderness, guarding, rebound, rigid, mass Extremities exam: Present: normal inspection, normal capillary refill. Absent: pedal edema, calf tenderness Back exam: Present: normal inspection. Absent: CVA tenderness (R), CVA tenderness (L) Neurological exam: Present: alert Psychiatric exam: Present: anxious Skin exam: Present: warm, dry, intact, normal color. Absent: rash Course Vital Signs 03/26/23 03/26/23 03/26/23 15:14 17:20 20:31 Temperature 98.1 F Pulse Rate 99 89 98 Pulse Rate [ Pulse Oximetery ] Respiratory 24 18 18 Rate Blood Pressure 153/81 117/76 137/71 Blood Pressure [Right Arm] O2 Sat by Pulse 95 93 L 94 L Oximetry 03/26/23 03/26/23 22:28 22:30 Temperature 98.1 F Pulse Rate Pulse Rate [ 100 Pulse Oximetery ] Respiratory 18 16 Rate Blood Pressure Blood Pressure 124/67 [Right Arm] O2 Sat by Pulse 95 Oximetry Medical Decision Making - Medical Decision Making I was able to review the patient's chest x-ray that had been taken here just prior to registering in. There do appear to be a small bilateral effusions. There does appear to be a mild fibrosis. There may be some elevation of left hemidiaphragm. Radiology interpretation is of bilateral like atelectasis versus possible infiltrate. The patient had CT of the chest which I interpreted to show right-sided pulmonary emboli. This patient is 68-year-old woman here to have evaluation of dyspnea. Given the history of previous cancer and the dyspnea d-dimer is obtained and is positive. The patient then had computed tomography scan of the chest as noted above. Patient admitted to have further treatment and evaluation for pulmonary embolism Was pt. sent in by a medical professional or institution (GREGORIA Shay, INSTRUMENT PANEL ASSEMBLER, urgent care, hospital, or shelter...) When possible be specific @ -[No] Did you speak to anyone other than the patient for history (EMS, parent, family, police, friend...)? What history was obtained from this source @ -[No] Did you review nursing and triage notes (agree or disagree)? Why? @ -[I reviewed and agree with nursing and triage notes] Were old charts reviewed (outside hosp., previous admission, EMS record, old EKG, old radiological studies, urgent care reports/EKG's, shelter records)? Report findings @ -[No old charts were reviewed] Differential Diagnosis (chest pain, altered mental status, abdominal pain women, abdominal pain men, vaginal bleeding, weakness, fever, dyspnea, syncope, headache, dizziness, GI bleed, back pain, seizure, CVA, palpatations, mental health, musculoskeletal)? @ -[Differential Dyspnea: Coronary syndrome, arrhythmia, tamponade, asthma, COPD, pulmonary embolism, pneumonia, pneumothorax, pulmonary effusion, anaphylaxis, diabetic ketoacidosis, flailed chest, pulmonary contusion, diaphragmatic rupture, anemia, neuromuscular, this is not meant to be an all-inclusive list. EKG interpreted by me (3pts min.). @ -[I interpreted As above] X-rays interpreted by me (1pt min.). @ -[ CT interpreted by me (1pt min.). @ -[I interpreted as above U/S interpreted by me (1pt. min.). @ -[None done] What testing was considered but not performed or refused? (CT, X-rays, U/S, labs)? Why? @ -[None] What meds were considered but not given or refused? Why? @ -[None] Did you discuss the management of the patient with other professionals (professionals i.e. , PA, INSTRUMENT PANEL ASSEMBLER, lab, RT, psych nurse, oncology social worker, steam boiler fireman, teacher, booking officer, pillowcase folder)? Give summary @ -[Case discussed with admitting physician and treatment recommendations are incorporated Was smoking cessation discussed for >3mins.? @ -[No] Was critical care preformed (if so, how long)? @ -[No] Were there social determinants of health that impacted care today? How? (Homelessness, low income, unemployed, alcoholism, drug addiction, transportation, low edu. Level, literacy, decrease access to med. care, fpc, rehab)? @ -[No] Was there de-escalation of care discussed even if they declined (Discuss DNR or withdrawal of care, Hospice)? DNR status @ -[No] What co-morbidities impacted this encounter? (DM, HTN, Smoking, COPD, CAD, Cancer, CVA, ARF, Chemo, Hep., AIDS, mental health diagnosis, sleep apnea, morbid obesity)? @ -[None] Was patient admitted / discharged? Hospital course, mention meds given and route, prescriptions, significant lab abnormalities, going to OR and other pertinent info. @ -[As above. Undiagnosed new problem with uncertain prognosis? @ -[No] Drug Therapy requiring intensive monitoring for toxicity (Heparin, Nitro, Insulin, Cardizem)? @ -[IV heparin Were any procedures done? @ -[No] Diagnosis/symptom? @ -[Acute pulmonary emboli Acute, or Chronic, or Acute on Chronic? @ -[Acute Uncomplicated (without systemic symptoms) or Complicated (systemic symptoms)? @ -[Calculi dyspnea Side effects of treatment? @ -[No] Exacerbation, Progression, or Severe Exacerbation? @ -[No] Poses a threat to life or bodily function? How? (Chest pain, USA, ID, pneumonia, PE, COPD, DKA, ARF, appy, cholecystitis, CVA, Diverticulitis, Homicidal, Suicidal, threat to staff... and all critical care pts) @ -[Yes untreated pulmonary emboli may lead to pulmonary infarct and/or respiratory failure and/or - Lab Data Result diagrams: 03/27/23 03:11 03/26/23 15:53 Lab Results 03/26/23 03/26/23 03/26/23 Range/Units 15:53 15:53 15:53 WBC 13.2 H (3.8-10.6) k/uL RBC 4.32 (3.80-5.40) m/uL Hgb 12.7 (11.4-16.0) gm/dL Hct 38.9 (34.0-46.0) % MCV 90.0 (80.0-100.0) fL MCH 29.4 (25.0-35.0) pg MCHC 32.7 (31.0-37.0) g/dL RDW 15.4 (11.5-15.5) % Plt Count 423 (150-450) k/uL MPV 7.3 Neutrophils % 62 % Lymphocytes % 27 % Monocytes % 8 % Eosinophils % 2 % Basophils % 0 % Neutrophils # 8.1 H (1.3-7.7) k/uL Lymphocytes # 3.5 (1.0-4.8) k/uL Monocytes # 1.0 (0-1.0) k/uL Eosinophils # 0.3 (0-0.7) k/uL Basophils # 0.0 (0-0.2) k/uL PT 9.8 (9.0-12.0) sec INR 0.9 (<1.2) APTT 22.9 (22.0-30.0) sec D-Dimer 1.51 H (<0.60) mg/L FEU Sodium 136 L (137-145) mmol/L Potassium 4.8 (3.5-5.1) mmol/L Chloride 105 (98-107) mmol/L Carbon Dioxide 22 (22-30) mmol/L Anion Gap 9 mmol/L BUN 18 H (7-17) mg/dL Creatinine 0.71 (0.52-1.04) mg/dL Est GFR (CKD-EPI)AfAm >90 (>60 ml/min/1.73 sqM) Est GFR (CKD-EPI)NonAf 88 (>60 ml/min/1.73 sqM) Glucose 88 (74-99) mg/dL Plasma Lactic Acid Alphonso (0.7-2.0) mmol/L Calcium 9.3 (8.4-10.2) mg/dL Total Bilirubin 0.7 (0.2-1.3) mg/dL AST 43 H (14-36) U/L ALT 21 (4-34) U/L Alkaline Phosphatase 66 (38-126) U/L Troponin I (0.000-0.034) ng/mL NT-Pro-B Natriuret Pep 97 pg/mL Total Protein 7.1 (6.3-8.2) g/dL Albumin 3.8 (3.5-5.0) g/dL Influenza Type A (PCR) (Not Detectd) Influenza Type B (PCR) (Not Detectd) RSV (PCR) (Not Detectd) SARS-CoV-2 (PCR) (Not Detectd) 03/26/23 03/26/23 03/26/23 Range/Units 15:53 15:53 15:53 WBC (3.8-10.6) k/uL RBC (3.80-5.40) m/uL Hgb (11.4-16.0) gm/dL Hct (34.0-46.0) % MCV (80.0-100.0) fL MCH (25.0-35.0) pg MCHC (31.0-37.0) g/dL RDW (11.5-15.5) % Plt Count (150-450) k/uL MPV Neutrophils % % Lymphocytes % % Monocytes % % Eosinophils % % Basophils % % Neutrophils # (1.3-7.7) k/uL Lymphocytes # (1.0-4.8) k/uL Monocytes # (0-1.0) k/uL Eosinophils # (0-0.7) k/uL Basophils # (0-0.2) k/uL PT (9.0-12.0) sec INR (<1.2) APTT (22.0-30.0) sec D-Dimer (<0.60) mg/L FEU Sodium (137-145) mmol/L Potassium (3.5-5.1) mmol/L Chloride (98-107) mmol/L Carbon Dioxide (22-30) mmol/L Anion Gap mmol/L BUN (7-17) mg/dL Creatinine (0.52-1.04) mg/dL Est GFR (CKD-EPI)AfAm (>60 ml/min/1.73 sqM) Est GFR (CKD-EPI)NonAf (>60 ml/min/1.73 sqM) Glucose (74-99) mg/dL Plasma Lactic Acid Alphonso 1.7 (0.7-2.0) mmol/L Calcium (8.4-10.2) mg/dL Total Bilirubin (0.2-1.3) mg/dL AST (14-36) U/L ALT (4-34) U/L Alkaline Phosphatase (38-126) U/L Troponin I <0.012 (0.000-0.034) ng/mL NT-Pro-B Natriuret Pep pg/mL Total Protein (6.3-8.2) g/dL Albumin (3.5-5.0) g/dL Influenza Type A (PCR) Not Detected (Not Detectd) Influenza Type B (PCR) Not Detected (Not Detectd) RSV (PCR) Not Detected (Not Detectd) SARS-CoV-2 (PCR) Not Detected (Not Detectd) - EKG Data -: EKG Interpreted by Ma EKG shows normal: sinus rhythm (Rate 99 bpm), axis (Normal), intervals (Normal), QRS complexes (Normal), ST-T waves (Normal) Disposition Clinical Impression: Lung cancer, Pulmonary embolism Disposition: ADMITTED IP TO THIS HOSP Condition: Fair Is patient prescribed a controlled substance at d/c from ED?: No
[2023-03-26 16:17] LABS: Basophils % (A) 0 %; Eosinophils # (A) 0.3 k/uL (0-0.7); Eosinophils % (A) 2 %; HCT 38.9 % (34.0-46.0); HGB 12.7 gm/dL (11.4-16.0); Lymphocytes # (A) 3.5 k/uL (1.0-4.8); Lymphocytes % (A) 27 %; MCH 29.4 pg (25.0-35.0); MCHC 32.7 g/dL (31.0-37.0); Mean Platelet Volume 7.3; Monocytes % (A) 8 %; Neutrophils # (A) 8.1 k/uL (1.3-7.7); Neutrophils % (A) 62 %; Platelet Count 423 k/uL (150-450); RBC 4.32 m/uL (3.80-5.40); RDW 15.4 % (11.5-15.5); WBC 13.2 k/uL (3.8-10.6)
[2023-03-26 16:27] LABS: ALT 21 U/L (4-34); African American GFR (CKD) >90 (>60 ml/min/1.73 sqM); Anion Gap 9 mmol/L; Blood Urea Nitrogen 18 mg/dL (7-17); Calcium 9.3 mg/dL (8.4-10.2); Carbon Dioxide 22 mmol/L (22-30); Chloride 105 mmol/L (98-107); Glucose 88 mg/dL (74-99); Non-African American GFR(CKD) 88 (>60 ml/min/1.73 sqM); Sodium 136 mmol/L (137-145); Total Bilirubin 0.7 mg/dL (0.2-1.3)
[2023-03-26 16:30] LABS: INR 0.9 (<1.2); Partial Thromboplastin Time 22.9 sec (22.0-30.0); Prothrombin Time 9.8 sec (9.0-12.0)
[2023-03-26 16:36] LABS: NT-Pro-B-Type Natriuretic Pept 97 pg/mL
[2023-03-26 16:51] LABS: AST 43 U/L (14-36); Potassium 4.8 mmol/L (3.5-5.1)
[2023-03-26 16:52] LABS: Albumin 3.8 g/dL (3.5-5.0); Alkaline Phosphatase 66 U/L (38-126); Total Protein 7.1 g/dL (6.3-8.2)
--- NOTE | 2023-03-26 18:22 | CT ---
EXAMINATION TYPE: CT chest angio for PE DATE OF EXAM: 03/26/2023 COMPARISON: NONE HISTORY: dyspnea CT DLP: 390.4 mGycm. Automated Exposure Control for Dose Reduction was Utilized. CONTRAST: CTA scan of the thorax is performed with IV Contrast, patient injected with 100ml mL of Iso keyshawn 370. MIP Images are created on CT scanner and reviewed. 3D reconstructed images are created on an independent workstation and reviewed. FINDINGS: EXTRATHORACIC: There is marked right axillary adenopathy. MEDIASTINUM: There is markedly extensive mediastinal adenopathy. This is seen throughout superior med iastinum, extending throughout the right paratracheal and prevascular space/AP window and continuing throughout the right hilum, subcarinal, and left infrahilar positions and also extending in. Esophage al position on into the epigastrium where there is mild upper abdominal. Celiac adenopathy.[id number]. There is satisfactory enhancement of the pulmonary artery and its branches, with segmental filling de fects consistent with pulmonary emboli within the right lower lobe. There is no enlargement of the pu lmonary arteries and no evidence of right heart strain. There is no acute aortic process. Prominent coronary calcifications are noted. No cardiomegaly. There is a small pericardial effusion w hich may or may not be related to the extensive adenopathy. LUNGS: No definite acute pulmonary process, although right apical parenchymal pleural changes noted. OTHER: 3 cm left adrenal nodule noted. IMPRESSION: Nonocclusive segmental pulmonary emboli in the right lower lobe. Marked right axillary adenopathy and hilar/mediastinal adenopathy. Left adrenal mass and mild upper a bdominal adenopathy.
[2023-03-26] MEDS ORDERED: NALOXONE 0.4 MG/ML 1 ML VIAL IV PRN (19:02)
[2023-03-26] MEDS ORDERED: HYDROcodone/APAP 5-325MG 1 EACH TAB PO PRN (19:53)
[2023-03-26] MEDS ORDERED: MORPHINE SULFATE 4 MG/ML SYRINGE IV PRN (19:53)
[2023-03-26] MEDS ORDERED: ONDANSETRON 4 MG/2 ML VIAL IVP PRN (19:53)
[2023-03-26] MEDS ORDERED: MAG HYDROX/AL HYDROX/SIMETH 30 ML CUP PO PRN (19:53)
[2023-03-26] MEDS ORDERED: HEPARIN SODIUM 1,000 UN/ML (10ML VL) IV ONE (19:58)
[2023-03-26] MEDS ORDERED: HEPARIN SODIUM 1,000 UN/ML (10ML VL) IV PRN (19:58)
[2023-03-26] MEDS ORDERED: HEPARIN SOD,PORK IN 0.45% NACL 25,000 UNIT in 0.45% NACL 1 250ML.BAG IV SCH (20:00)
[2023-03-26] MEDS: FAMOTIDINE 20 MG TAB PO SCH (20:10)
[2023-03-26] MEDS: ATORVASTATIN 20 MG TAB PO SCH (20:10)
[2023-03-26] MEDS: SODIUM CHLORIDE 0.9% 1,000 ML IV SCH (20:30)
[2023-03-27] MEDS: LEVOTHYROXINE 75 MCG TAB PO SCH (05:35)
[2023-03-27] MEDS: APIXABAN 5 MG TAB PO SCH ×2 (09:07→20:01)
[2023-03-27] MEDS: FAMOTIDINE 20 MG TAB PO SCH ×2 (09:07→20:01)
[2023-03-27 09:24] LABS: Basophils # (A) 0.08 X 10*3/uL (0.00-0.10); Basophils % (A) 0.7 %; Eosinophils # (A) 0.23 X 10*3/uL (0.04-0.35); HCT 39.6 % (37.2-46.3); Lymphocytes # (A) 3.06 X 10*3/uL (0.90-5.00); Lymphocytes % (A) 26.6 %; MCH 28.6 pg (27.0-32.0); MCHC 30.3 d/dL (32.0-37.0); MCV 94.3 FL (80.0-97.0); Mean Platelet Volume 10.6 FL (9.5-12.2); Monocytes # (A) 1.22 X 10*3/uL (0.20-1.00); Monocytes % (A) 10.6 %; NRBC Per 100 WBC 0 X 10*3/uL (0.00-0.01); Neutrophils % (A) 58.3 %; Platelet Count 412 X 10*3/uL (140-440); RDW 15.9 % (11.5-14.5)
[2023-03-27] MEDS: ESCITALOPRAM 20 MG TAB PO SCH (09:36)
--- NOTE | 2023-03-27 11:41 | P.CNPUL ---
History of Present Illness Consult date: 03/27/23 Requesting physician: Miguel Young Reason for consult: dyspnea, abnormal CXR/CT Chief complaint: Shortness of breath History of present illness: This a very pleasant 68-year-old female patient with a known history of chronic tobacco dependence however quit 10 years ago, hyperlipidemia, hypothyroidism, depression. She was has a history of stage IV lung cancer diagnosed in October 2021 and follows with oncology at [facility] in [place]. She states she's had 3 rounds of chemotherapy none of which have worked. She's been in clinical trials currently. She presented here to the emergency room yesterday with a 1 week history of increasing shortness of breath. No fever or chills. No hemoptysis. His x-ray showed basilar atelectasis. There is a lobulated 2 cm right lung nodule at the base. CT angiogram revealed markedly right axillary adenopathy. Marketed extensive mediastinal adenopathy. Right apical parenchymal pleural changes. 3 cm left adrenal nodule noted. There is nonocclusive subsegmental pulmonary emboli in the right lower lobe and she was admitted for the same. She was initiated on a heparin drip. Count 11.5. Hemoglobin 12.0. Platelets 412. Sodium 136. Potassium 4.8. Bicarb 22. BUN 18. Creatinine 0.71. Influenza screen negative. RSV screen negative. COVID-19 screen negative. She is seen today in consultation on the regular medical floor. She is sitting up in bed. Awake and alert. Maintaining good O2 saturations in the 90s on room air. She's afebrile. Hemodynamically stable. Review of Systems REVIEW OF SYSTEMS: CONSTITUTIONAL: Denies any recent significant weight loss or weight gain. EYES: Denies change in vision. EARS, NOSE, MOUTH, THROAT: Denies headaches, denies sore throat. CARDIOVASCULAR: Denies chest pain, palpitations or syncopal episodes. RESPIRATORY: Positive for shortness of breath, no cough, congestion or hemoptysis. GASTROINTESTINAL: Denies change in appetite, denies abdominal pain GENITOURINARY: Denies hematuria, denies infections. MUSKULOSKELETAL: Denies pain, denies swelling. INTEGUMENTARY: Denies rash, denies eczema. NEUROLOGICAL: Denies recent memory loss, no recent seizure activity. PSYCHIATRIC: Denies anxiety, denies depression. HEMATOLOGIC/LYMPHATIC: Denies anemia, positive for enlarged lymph nodes. Past Medical History Past Medical History: Cancer, Hyperlipidemia Additional Past Medical History / Comment(s): Lung CA History of Any Multi-Drug Resistant Organisms: None Reported Past Surgical History: Joint Replacement, Orthopedic Surgery Additional Past Surgical History / Comment(s): Roni knee replacements. BILAT BUNIONECTOMY. COLONOSCOPY AND EGD, Zahra fundoplication Past Anesthesia/Blood Transfusion Reactions: Postoperative Nausea & Vomiting (PONV) Past Psychological History: No Psychological Hx Reported Smoking Status: Former smoker Past Alcohol Use History: None Reported Additional Past Alcohol Use History / Comment(s): QUIT SMOKING in 2013. Past Drug Use History: None Reported - Past Family History Mother Family Medical History: No Reported History Medications and Allergies Home Medications Medication Instructions Recorded Confirmed Type Atorvastatin [Lipitor] 20 mg PO HS 03/02/18 03/26/23 History Escitalopram Oxalate [Lexapro] 20 mg PO DAILY 02/24/21 03/26/23 History Levothyroxine Sodium [Synthroid] 75 mcg PO DAILY 03/26/23 03/26/23 History Allergies Allergy/AdvReac Type Severity Reaction Status Date / Time nickel Allergy Rash/Hives Verified 03/26/23 16:29 METAL Allergy ITCHING Uncoded 03/26/23 16:29 AND RASH Physical Exam Vitals: Vital Signs Temp Pulse Pulse Resp BP BP Pulse Ox 03/27/23 07:10 97.8 F 95 18 139/71 92 L 03/27/23 01:27 98.4 F 89 16 122/67 94 L 03/26/23 22:30 16 03/26/23 22:28 98.1 F 100 18 124/67 95 03/26/23 20:31 98 18 137/71 94 L 03/26/23 17:20 89 18 117/76 93 L 03/26/23 15:14 98.1 F 99 24 153/81 95 Intake and Output 03/26/23 03/27/23 03/27/23 22:59 06:59 14:59 Intake Total 927.633 Balance 927.633 Intake: Intake, IV Titration 327.633 Amount Heparin Sod,Pork in 0.45% 127.633 NaCl 25,000 unit In 0.45 % NaCl 1 250ml.bag @ 18 UNITS/KG/HR 15.921 mls/hr IV .[id number] [facility] Rx#: [id number] Sodium Chloride 0.9% 1, 200 000 ml @ 20 mls/hr IV . Q24H [facility] Rx#:[id number] Oral 600 Other: Voiding Method Toilet # Voids 1 1 Weight 88.451 kg GENERAL EXAM: Alert, very pleasant 68-year-old female, on room air, comfortable in no apparent distress. HEAD: Normocephalic. EYES: Normal reaction of pupils, equal size. NOSE: Clear with pink turbinates. THROAT: No erythema or exudates. NECK: No masses, no JVD. CHEST: No chest wall deformity. LUNGS: Equal air entry with no crackles, wheeze, rhonchi or dullness. CVS: S1 and S2 normal with no audible murmur, regular rhythm. ABDOMEN: No hepatosplenomegaly, normal bowel sounds, no guarding or rigidity. SPINE: No scoliosis or deformity SKIN: No rashes CENTRAL NERVOUS SYSTEM: No focal deficits, tone is normal in all 4 extremities. EXTREMITIES: There is no peripheral edema. No clubbing, no cyanosis. Peripheral pulses are intact. Results - Laboratory Findings CBC and BMP: 03/27/23 03:11 03/26/23 15:53 PT/INR, D-dimer PT 9.8 sec (9.0-12.0) 03/26/23 15:53 INR 0.9 (<1.2) 03/26/23 15:53 D-Dimer 1.51 mg/L FEU (<0.60) H 03/26/23 15:53 Abnormal lab findings: Abnormal Labs 03/26/23 03/26/23 03/26/23 15:53 15:53 15:53 WBC 13.2 H MCHC RDW Neutrophils # 8.1 H Monocytes # APTT D-Dimer 1.51 H Sodium 136 L BUN 18 H AST 43 H 03/27/23 03/27/23 03:07 03:11 WBC 11.50 H MCHC 30.3 L RDW 15.9 H Neutrophils # Monocytes # 1.22 H APTT 142.6 H* D-Dimer Sodium BUN AST - Diagnostic Findings Chest x-ray: image reviewed CT scan - chest: image reviewed Assessment and Plan Assessment: Dyspnea secondary to a small nonocclusive subsegmental pulmonary emboli in the right lower lobe History of stage IV lung cancer since October 2021 with known markedly right axillary adenopathy and hilar/mediastinal adenopathy along with a left adrenal mass and mild upper abdominal adenopathy. Currently in clinical trials with [facility] [place] Former smoker however quit 10 years ago Hypothyroidism Hyperlipidemia History of depression Plan: The patient was seen and evaluated CAT scan, chest x-ray, labs and medications reviewed Stable and on room air We'll transition to Eliquis Discontinue heparin drip Cleared for discharge from the pulmonary standpoint Follow closely with her oncologist in [place] I have personally seen and examined the patient, performed the documentation and the assessment and plan as written. Number of minutes spent on the visit: 20.
--- NOTE | 2023-03-27 14:49 | P.HPIM ---
History of Present Illness H&P Date: 03/27/23 Chief Complaint: Shortness of breath, chest pressure * 68-year-old lady with past medical history significant for lung cancer, hyperlipidemia, hypothyroid, depression, history of metastatic lung cancer [facility] with complains of worsening shortness of breath. * Workup in ER included a chest x-ray which showed bibasilar atelectasis. Patient had CT chest done which showed a generally adenopathy and nonocclusive pulmonary emboli and right lower lobe. * Patient started on IV heparin with consultation from oncology and pulmonary medicine * Patient was noted to be desaturating and was started on 2 L of oxygen * Workup condition included negative for influenza, RSV and Covid * CBC obtained showed WBC of 11.5 hemoglobin 12 platelet for 1 to * Serum chemistry sodium 136 potassium 4.8 bicarb 22 BUN 18 creatinine 0.71 REVIEW OF SYSTEMS: Shortness of breath, chest pressure, exertional dyspnea CONSTITUTIONAL: No fever, no malaise, no fatigue. HEENT: No recent visual problems or hearing problems. Denied any sore throat. CARDIOVASCULAR: No chest pain, orthopnea, PND, no palpitations, no syncope. PULMONARY: No shortness of breath, no cough, no hemoptysis. GASTROINTESTINAL: No diarrhea, no nausea, no vomiting, no abdominal pain. NEUROLOGICAL: No headaches, no weakness, no numbness. HEMATOLOGICAL: Denies any bleeding or petechiae. GENITOURINARY: Denies any burning micturition, frequency, or urgency. MUSCULOSKELETAL/RHEUMATOLOGICAL: Denies any joint pain, swelling, or any muscle pain. ENDOCRINE: Denies any polyuria or polydipsia. The rest of the 14-point review of systems is negative. PHYSICAL EXAMINATION: GENERAL: The patient is alert and oriented x3, not in any acute distress. Well developed, well nourished. Nasal cannula in place HEENT: Pupils are round and equally reacting to light. EOMI. No scleral icterus. No conjunctival pallor. Normocephalic, atraumatic. No pharyngeal erythema. No thyromegaly. CARDIOVASCULAR: S1 and S2 present. No murmurs, rubs, or gallops. PULMONARY: She is breath sounds bilaterally ABDOMEN: Soft, nontender, nondistended, normoactive bowel sounds. No palpable organomegaly. MUSCULOSKELETAL: No joint swelling or deformity. EXTREMITIES: No cyanosis, clubbing, or pedal edema. NEUROLOGICAL: Gross neurological examination did not reveal any focal deficits. SKIN: No rashes. Past Medical History Past Medical History: Cancer, Hyperlipidemia Additional Past Medical History / Comment(s): Lung CA History of Any Multi-Drug Resistant Organisms: None Reported Past Surgical History: Joint Replacement, Orthopedic Surgery Additional Past Surgical History / Comment(s): Roni knee replacements. BILAT BUNIONECTOMY. COLONOSCOPY AND EGD, Zahra fundoplication Past Anesthesia/Blood Transfusion Reactions: Postoperative Nausea & Vomiting (PONV) Past Psychological History: No Psychological Hx Reported Smoking Status: Former smoker Past Alcohol Use History: None Reported Additional Past Alcohol Use History / Comment(s): QUIT SMOKING in 2013. Past Drug Use History: None Reported - Past Family History Mother Family Medical History: No Reported History Medications and Allergies Home Medications Medication Instructions Recorded Confirmed Type Atorvastatin [Lipitor] 20 mg PO HS 03/02/18 03/26/23 History Escitalopram Oxalate [Lexapro] 20 mg PO DAILY 02/24/21 03/26/23 History Levothyroxine Sodium [Synthroid] 75 mcg PO DAILY 03/26/23 03/26/23 History Allergies Allergy/AdvReac Type Severity Reaction Status Date / Time nickel Allergy Rash/Hives Verified 03/26/23 16:29 METAL Allergy ITCHING Uncoded 03/26/23 16:29 AND RASH Physical Exam Vitals: Vital Signs Temp Pulse Pulse Resp BP BP Pulse Ox 03/27/23 12:15 98.3 F 93 18 140/67 98 03/27/23 07:10 97.8 F 95 18 139/71 92 L 03/27/23 01:27 98.4 F 89 16 122/67 94 L 03/26/23 22:30 16 03/26/23 22:28 98.1 F 100 18 124/67 95 03/26/23 20:31 98 18 137/71 94 L 03/26/23 17:20 89 18 117/76 93 L 03/26/23 15:14 98.1 F 99 24 153/81 95 Intake and Output 03/26/23 03/27/23 03/27/23 22:59 06:59 14:59 Intake Total 927.633 Balance 927.633 Intake: Intake, IV Titration 327.633 Amount Heparin Sod,Pork in 0.45% 127.633 NaCl 25,000 unit In 0.45 % NaCl 1 250ml.bag @ 18 UNITS/KG/HR 15.921 mls/hr IV .[id number] [facility] Rx#: [id number] Sodium Chloride 0.9% 1, 200 000 ml @ 20 mls/hr IV . Q24H [facility] Rx#:[id number] Oral 600 Other: Voiding Method Toilet # Voids 1 1 Weight 88.451 kg Results CBC & Chem 7: 03/27/23 03:11 03/26/23 15:53 Labs: Abnormal Lab Results - Last 24 Hours (Table) 03/26/23 03/26/23 03/26/23 Range/Units 15:53 15:53 15:53 WBC 13.2 H (3.8-10.6) k/uL MCHC (32.0-37.0) d/dL RDW (11.5-14.5) % Neutrophils # 8.1 H (1.3-7.7) k/uL Monocytes # (0.20-1.00) X 10*3/uL APTT (22.0-30.0) sec D-Dimer 1.51 H (<0.60) mg/L FEU Sodium 136 L (137-145) mmol/L BUN 18 H (7-17) mg/dL AST 43 H (14-36) U/L 03/27/23 03/27/23 03/27/23 Range/Units 03:07 03:11 11:35 WBC 11.50 H (3.8-10.6) k/uL MCHC 30.3 L (32.0-37.0) d/dL RDW 15.9 H (11.5-14.5) % Neutrophils # (1.3-7.7) k/uL Monocytes # 1.22 H (0.20-1.00) X 10*3/uL APTT 142.6 H* 32.0 H (22.0-30.0) sec D-Dimer (<0.60) mg/L FEU Sodium (137-145) mmol/L BUN (7-17) mg/dL AST (14-36) U/L Thrombosis Risk Factor Assmnt - Choose All That Apply Any of the Below Risk Factors Present?: Yes Each Factor Represents 1 point: Obesity (BMI >25) Other Risk Factors: Yes Each Risk Factor Represents 2 Points: Age 61-74 years, Malignancy Each Risk Factor Represents 3 Points: History of DVT/PE Other congenital or acquired thrombophilia - If yes, enter type in comment: No Thrombosis Risk Factor Assessment Total Risk Factor Score: 8 Thrombosis Risk Factor Assessment Level: High Risk Assessment and Plan Assessment: Assessment and plan Acute pulmonary embolism with acute hypoxic respiratory failure History of stage IV lung cancer Dyslipidemia Hypothyroid History of depression * Patient was started on IV heparin, transition to Eliquis 10 mg twice a day for 7 days followed by 5 mg twice a day * In regards to acute hypoxic history failure patient will need dressing walking prior to discharge. Continue to wean down oxygen and monitor issue does have exertional dyspnea and tachycardia * In regards to her dyslipidemia, hypothyroid, depression continue home medications * CODE STATUS is full code
[2023-03-27] MEDS: SODIUM CHLORIDE 0.9% 1,000 ML IV SCH (19:23)
[2023-03-27] MEDS: ATORVASTATIN 20 MG TAB PO SCH (20:01)
[2023-03-27] MEDS: ACETAMINOPHEN TAB 325 MG TAB PO PRN (22:02)
[2023-03-28] MEDS: LEVOTHYROXINE 75 MCG TAB PO SCH (05:15)
[2023-03-28] MEDS: FAMOTIDINE 20 MG TAB PO SCH ×2 (09:33→19:59)
[2023-03-28] MEDS: ESCITALOPRAM 20 MG TAB PO SCH (09:33)
[2023-03-28] MEDS: APIXABAN 5 MG TAB PO SCH ×2 (09:33→19:59)
--- NOTE | 2023-03-28 10:05 | P.PN ---
Subjective Progress Note Date: 03/28/23 This a very pleasant 68-year-old female patient with a known history of chronic tobacco dependence however quit 10 years ago, hyperlipidemia, hypothyroidism, depression. She was has a history of stage IV lung cancer diagnosed in October 2021 and follows with oncology at [facility] in [place]. She states she's had 3 rounds of chemotherapy none of which have worked. She's been in clinical trials currently. She presented here to the emergency room yesterday with a 1 week history of increasing shortness of breath. No fever or chills. No hemoptysis. His x-ray showed basilar atelectasis. There is a lobulated 2 cm right lung nodule at the base. CT angiogram revealed markedly right axillary adenopathy. Marketed extensive mediastinal adenopathy. Right apical parenchymal pleural changes. 3 cm left adrenal nodule noted. There is nonocclusive subsegmental pulmonary emboli in the right lower lobe and she was admitted for the same. She was initiated on a heparin drip. Count 11.5. Hemoglobin 12.0. Platelets 412. Sodium 136. Potassium 4.8. Bicarb 22. BUN 18. Creatinine 0.71. Influenza s creen negative. RSV screen negative. COVID-19 screen negative. She is seen today in consultation on the regular medical floor. She is sitting up in bed. Awake and alert. Maintaining good O2 saturations in the 90s on room air. She's afebrile. Hemodynamically stable. The patient is seen today 03/28/2023 in follow-up on the regular medical floor. She is resting comfortable in bed. Awake and alert in no acute distress. Denies any worsening shortness breath, cough or congestion. No hemoptysis. Maintaining O2 saturation in the 90s on 2 L/m per nasal cannula. She's been transitioned to Eliquis. Objective - Vital Signs Vital signs: Vital Signs Temp 98.9 F 03/28/23 07:23 Pulse 80 03/28/23 07:23 Resp 16 03/28/23 07:23 BP 113/72 03/28/23 07:23 Pulse Ox 98 03/28/23 07:23 FiO2 Intake & Output 03/27/23 03/28/23 03/28/23 18:59 06:59 18:59 Intake Total 600 Balance 600 Intake: Oral 600 Other: Voiding Method Toilet # Voids 1 2 - Exam GENERAL EXAM: Alert, active, pleasant 68-year-old female, on 2 L nasal cannula, comfortable in no apparent distress. HEAD: Normocephalic. EYES: Normal reaction of pupils, equal size. NOSE: Clear with pink turbinates. THROAT: No erythema or exudates. NECK: No masses, no JVD. CHEST: No chest wall deformity. LUNGS: Equal air entry with no crackles, wheeze, rhonchi or dullness. CVS: S1 and S2 normal with no audible murmur, regular rhythm. ABDOMEN: No hepatosplenomegaly, normal bowel sounds, no guarding or rigidity. SPINE: No scoliosis or deformity SKIN: No rashes CENTRAL NERVOUS SYSTEM: No focal deficits, tone is normal in all 4 extremities. EXTREMITIES: There is no peripheral edema. No clubbing, no cyanosis. Peripheral pulses are intact. - Labs CBC & Chem 7: 03/27/23 03:11 03/26/23 15:53 Labs: Abnormal Lab Results - Last 24 Hours (Table) 03/27/23 Range/Units 11:35 APTT 32.0 H (22.0-30.0) sec Assessment and Plan Assessment: Dyspnea secondary to a small nonocclusive subsegmental pulmonary emboli in the right lower lobe History of stage IV lung cancer since October 2021 with known markedly right axillary adenopathy and hilar/mediastinal adenopathy along with a left adrenal mass and mild upper abdominal adenopathy. Currently in clinical trials with [facility] Former smoker however quit 10 years ago Hypothyroidism Hyperlipidemia History of depression Plan: The patient was seen and evaluated Medications reviewed [facility] for possible home O2 Cleared for discharge from the pulmonary standpoint Follow closely with her oncologist in [place] I have personally seen and examined the patient, performed the documentation and the assessment and plan as written. Number of minutes spent on the visit: 10.
[2023-03-28] MEDS: ACETAMINOPHEN TAB 325 MG TAB PO PRN ×2 (11:58→19:51)
--- NOTE | 2023-03-28 12:40 | P.PN ---
Subjective Progress Note Date: 03/28/23 * 68-year-old lady with past medical history significant for lung cancer, hyperlipidemia, hypothyroid, depression, history of metastatic lung cancer [facility] with complains of worsening shortness of breath. * Workup in ER included a chest x-ray which showed bibasilar atelectasis. Patient had CT chest done which showed a generally adenopathy and nonocclusive pulmonary emboli and right lower lobe. * Patient started on IV heparin with consultation from oncology and pulmonary medicine * Patient was noted to be desaturating and was started on 2 L of oxygen * Workup condition included negative for influenza, RSV and Covid * CBC obtained showed WBC of 11.5 hemoglobin 12 platelet for 1 to * Serum chemistry sodium 136 potassium 4.8 bicarb 22 BUN 18 creatinine 0.71 03/28: Patient seen and evaluated bedside, patient noted to be on 2 L of oxygen. Plan to wean off oxygen. Potential discharge home. Patient will need to be monitored for home oxygen and will need dressing walking pulse ox meter which has been ordered. Will need coordination with case management to arrange oxygen to discharge from medical nursing staff. Will need discharge on Eliquis starter pack dose 3 of 14 for 10 mg followed by those 5 mg twice a day Objective - Vital Signs Vital signs: Vital Signs Temp 98.9 F 03/28/23 07:23 Pulse 80 03/28/23 07:23 Resp 16 03/28/23 07:23 BP 113/72 03/28/23 07:23 Pulse Ox 98 03/28/23 07:23 FiO2 Intake & Output 03/27/23 03/28/23 03/28/23 18:59 06:59 18:59 Intake Total 600 Balance 600 Intake: Oral 600 Other: Voiding Method Toilet # Voids 1 2 - Exam GENERAL: The patient is alert and oriented x3, not in any acute distress. Well developed, well nourished. Nasal cannula in place HEENT: Pupils are round and equally reacting to light. EOMI. No scleral icterus. No conjunctival pallor. Normocephalic, atraumatic. No pharyngeal erythema. No thyromegaly. CARDIOVASCULAR: S1 and S2 present. No murmurs, rubs, or gallops. PULMONARY: She is breath sounds bilaterally ABDOMEN: Soft, nontender, nondistended, normoactive bowel sounds. No palpable organomegaly. MUSCULOSKELETAL: No joint swelling or deformity. EXTREMITIES: No cyanosis, clubbing, or pedal edema. NEUROLOGICAL: Gross neurological examination did not reveal any focal deficits. - Labs CBC & Chem 7: 03/27/23 03:11 03/26/23 15:53 Assessment and Plan Assessment: Assessment and plan Acute pulmonary embolism with acute hypoxic respiratory failure History of stage IV lung cancer Dyslipidemia Hypothyroid History of depression * Patient was started on IV heparin, transition to Eliquis 10 mg twice a day for 7 days day 2>> followed by 5 mg twice a day * In regards to acute hypoxic history failure patient will need dressing walking prior to discharge. Continue to wean down oxygen and monitor issue does have exertional dyspnea and tachycardia * In regards to her dyslipidemia, hypothyroid, depression continue home medications * CODE STATUS is full code * Potential discharge once oxygen requirements addressed
--- NOTE | 2023-03-28 15:07 | P.CONS ---
History of Present Illness - Reason for Consult Consult date: 03/28/23 PE, lung cancer Requesting physician: Justyna Ledbetter - Chief Complaint SOB - History of Present Illness Ms. Schrader is a very pleasant 68-year-old female, patient of Dr. Maddox, with history of metastatic lung cancer. She comes in now with increasing shortness of breath. Workup in the ER with CT/PET revealed a non-occlusive segmental pulmonary emboli in the right lower lobe as well as marked right axillary adenopathy and hilar/mediastinal lymphadenopathy. Also with a left adrenal mass and mild upper abdominal lymphadenopathy seen. She was started on a heparin drip and admitted. Feeling much better and switch to Eliquis. We were consulted due to her cancer history and new PE. She says that she's feeling much better after being anticoagulated. She is ready to go home however she does require oxygen which she has not been on at home and home oxygen is being arranged. Possible discharge tomorrow. Denies any other provoking factors other than her malignancy. She does admit to having had recent progression and restaging images planned soon with molecular studies pending to determine if she would be a candidate for a clinical trial. She is currently seeing Dr. Quinn at [facility] and her follow-up is on . Oncologic History: Patient of Dr. Maddox. Celina presented with R chest wall/axillary pain X 6 weeks while in [place], she denied history of trauma. The patient was seen at a local hospital ER > CT done revealing RUL collapse with potential underlying mass > told to likely have malignancy. She decided to come back to [place] for care. When seen today, she stated having moderate/severe pain (On Naproxen) and mild SOB. Denies anorexia or weight loss, no cough. Celina smoked 1 PPD X 25 years, quit 8 years ago, denies ETOH use. 10/29/21: Had Bx to R chest wall lesion: metastatic High-grade NSCLC, ? Squamous differentiation. Analgesics only partially effective. PET Scan: no definate distant mets. 12/03/21: C/O moderate constipation after chemotherapy, has minimal nausea. R chest wall/axillary pain resolved, she is not taking analgesics at present. 01/21/22: C/O fatigiue, minimal R chest wall pain. PET Aguirre: Near CR 03/04/22: C/O fatigue, tolerating Keytruda well. 04/21/22: Feels well, tolerating Keytruda well, fully active. 06/24/22: Feels well, had recent URTI , no fever. Tolerating Keytruda well. PET Scan: Re-developed mediastinal lymphadenopathy. 09/11/22: C/O "wheezing" & weakness. Tolerating Keytruda well. PET Scan: definite progression 09/30/22: Tolerated Cycle#1 of Taxotere/Cyramza poorly. Had nausea, constipation, sore mouth and severe fatigue. 11/20/22: Feels Ok, had recent viral URTI > improving. C/O fatigue & numbness in hands/feet (mild). 12/03/22: Feels Ok, tired, completed 4 cycles of Taxotere/Cyramza > PET Scan > Progression. Referred to Dr. Quinn at [facility]. Subsequently pt seen by Dr. Quinn at [facility] and has been following up there for clinical trial. She was in a trial using Keytruda with a new agent until recently when she was found to have progression, and now molecular study is pending to determine if she would qualify for alternate clinical trial. Past Medical History Past Medical History: Cancer, Hyperlipidemia Additional Past Medical History / Comment(s): Lung CA History of Any Multi-Drug Resistant Organisms: None Reported Past Surgical History: Joint Replacement, Orthopedic Surgery Additional Past Surgical History / Comment(s): Roni knee replacements. BILAT BUNIONECTOMY. COLONOSCOPY AND EGD, Zahra fundoplication Past Anesthesia/Blood Transfusion Reactions: Postoperative Nausea & Vomiting (PONV) Past Psychological History: No Psychological Hx Reported Smoking Status: Former smoker Past Alcohol Use History: None Reported Additional Past Alcohol Use History / Comment(s): QUIT SMOKING in 2013. Past Drug Use History: None Reported - Past Family History Mother Family Medical History: No Reported History Medications and Allergies Home Medications Medication Instructions Recorded Confirmed Type Atorvastatin [Lipitor] 20 mg PO HS 03/02/18 03/26/23 History Escitalopram Oxalate [Lexapro] 20 mg PO DAILY 02/24/21 03/26/23 History Levothyroxine Sodium [Synthroid] 75 mcg PO DAILY 03/26/23 03/26/23 History Allergies Allergy/AdvReac Type Severity Reaction Status Date / Time nickel Allergy Rash/Hives Verified 03/26/23 16:29 METAL Allergy ITCHING Uncoded 03/26/23 16:29 AND RASH Physical Exam Vitals: Vital Signs Temp Pulse Pulse Pulse Pulse Pulse Resp 03/28/23 12:36 100.1 F H 94 16 03/28/23 12:20 94 98 85 111 H 03/28/23 07:23 98.9 F 80 16 03/28/23 01:07 97.8 F 89 17 03/27/23 19:45 18 03/27/23 18:53 98.0 F 98 18 BP Pulse Ox Pulse Ox Pulse Ox Pulse Ox Pulse Ox 03/28/23 12:36 100/63 94 L 03/28/23 12:20 95 93 L 94 L 84 L 03/28/23 07:23 113/72 98 03/28/23 01:07 117/63 98 03/27/23 19:45 03/27/23 18:53 125/67 97 Intake and Output 03/27/23 03/28/23 03/28/23 22:59 06:59 14:59 Intake Total 600 Balance 600 Intake: Oral 600 Other: Voiding Method Toilet # Voids 2 Patient in no acute distress. No respiratory distress however on oxygen by nasal cannula. Heart rate regular. Abdomen soft. No jaundice. Results CBC & Chem 7: 03/27/23 03:11 03/26/23 15:53 CT scan - chest: report reviewed Assessment and Plan Assessment: 1. Metastatic lung cancer 2. Right lung PE 3. Hypoxic respiratory failure due to PE and underlying lung cancer and disease progression 4. Leukocytosis Plan: Ms. Schrader is a very pleasant 68 yo female with a history of metastatic lung cancer, currently following at [facility] with Dr. Quinn, recently found to have disease progression and being evaluated for a clinical trial, who is here for increasing shortness of breath, found to have significant hypoxia. CT with PE and increased significant lymphadenopathy. Doing much better after being anticoagulated and switched to Eliquis today in anticipation of discharge soon on home oxygen. -Leukocytosis likely reactive due to acute stress of hypoxia and PE, as well as possibly cancer progression, improving -Agree with AC with eliquis upon discharge -Agree with oxygen at home as she has been desat'ing to 80's with exertion -She will follow up with Dr. Quinn at [facility] later this week, on as previously planned -Encouraged her to obtain her CT images on CT and take this with her to [place] -No objections to discharge from oncology stand point. Discussed with patient and she is agreeable to the plan. All of her questions were answered.
[2023-03-28] MEDS: SODIUM CHLORIDE 0.9% 1,000 ML IV SCH (19:47)
[2023-03-28] MEDS: ATORVASTATIN 20 MG TAB PO SCH (19:48)
[2023-03-28 19:59] VITALS: RESP 18
[2023-03-29] MEDS: LEVOTHYROXINE 75 MCG TAB PO SCH (05:37)
[2023-03-29] MEDS: ACETAMINOPHEN TAB 325 MG TAB PO PRN (05:39)
[2023-03-29] MEDS: ESCITALOPRAM 20 MG TAB PO SCH (07:29)
[2023-03-29] MEDS: APIXABAN 5 MG TAB PO SCH (07:29)
[2023-03-29] MEDS: FAMOTIDINE 20 MG TAB PO SCH (07:29)
--- NOTE | 2023-03-29 11:08 | P.PN ---
Subjective Progress Note Date: 03/29/23 Principal diagnosis: Pulmonary embolism, History stage IV non-small cell lung cancer, recent progression In follow-up today patient denies any bleeding, she is still short of breath with exertion but this is improved from admit, she denies any chest pain, dizziness. She is tolerating the Ahlquist without any side effects. She is due to be followed up in [place] for clinical trial later this week Objective - Vital Signs Vital signs: Vital Signs Temp 98.3 F 03/29/23 07:10 Pulse 85 03/29/23 07:10 Resp 18 03/29/23 07:10 BP 98/65 03/29/23 07:10 Pulse Ox 96 03/29/23 07:10 FiO2 Intake & Output 03/28/23 03/29/23 03/29/23 18:59 06:59 18:59 Other: Voiding Method Toilet # Voids 3 1 1 - Constitutional General appearance: Present: average body habitus, cooperative, no acute distress - EENT Eyes: Present: anicteric sclerae, EOMI ENT: Present: hearing grossly normal - Respiratory Respiratory: bilateral: diminished - Cardiovascular Details: Skin warm and dry to the touch, radial pulse regular, 2+ - Neurologic Neurologic: Present: CNII-XII intact - Musculoskeletal Musculoskeletal: Present: strength equal bilaterally - Psychiatric Psychiatric: Present: A&O x's 3, appropriate affect, intact judgment & insight - Labs CBC & Chem 7: 03/27/23 03:11 03/26/23 15:53 Assessment and Plan (1) Pulmonary embolism Current Visit: Yes Status: Acute Priority: High Code(s): I26.99 - OTHER PULMONARY EMBOLISM WITHOUT ACUTE COR PULMONALE SNOMED Code(s): 51561679 (2) Lung cancer Current Visit: Yes Status: Chronic Priority: Medium Code(s): C34.90 - MALIGNANT NEOPLASM OF UNSP PART OF UNSP BRONCHUS OR LUNG SNOMED Code(s): 196468982 Plan: Pulmonary embolism -Increased risk for VTE with active malignancy -Doppler of the bilateral lower extremities ordered for baseline -Patient is currently tolerating eliquis. Rx sent, discussed case with Case Management to verify co-pay Metastatic non-small cell lung cancer -Patient unfortunately had recent progression on clinical trial. -Patient is currently pending molecular testing for clinical trial -Patient has follow-up appointments with her Medical Oncologist in [place], she will keep those appointments. Requested images to be placed on a disc for the patient take with her to her appointment
[2023-03-29 12:07] VITALS: BP 109/60; TEMP 98.9
--- NOTE | 2023-03-29 12:45 | US ---
EXAMINATION TYPE: US venous doppler duplex LE DATE OF EXAM: 03/29/2023 12:22 PM COMPARISON: NONE CLINICAL INDICATION: Female, 68 years old with history of PE; PE SIDE PERFORMED: Bilateral TECHNIQUE: The lower extremity deep venous system is examined utilizing real time linear array sonog radha with graded compression, doppler sonography and color-flow sonography. VESSELS IMAGED: Common Femoral Vein Deep Femoral Vein Greater Saphenous Vein * Femoral Vein Popliteal Vein Small Saphenous Vein * Proximal Calf Veins (* superficial vessels) Right Leg: Negative for DVT Left Leg: Negative for DVT IMPRESSION: Grayscale, color doppler, spectral doppler imaging performed of the deep veins of the lo wer extremities. There is normal flow, compressibility, vascular waveforms.
--- NOTE | 2023-03-29 13:08 | P.PN ---
Subjective Progress Note Date: 03/29/23 This a very pleasant 68-year-old female patient with a known history of chronic tobacco dependence however quit 10 years ago, hyperlipidemia, hypothyroidism, depression. She was has a history of stage IV lung cancer diagnosed in October 2021 and follows with oncology at [facility] in [place]. She states she's had 3 rounds of chemotherapy none of which have worked. She's been in clinical trials currently. She presented here to the emergency room yesterday with a 1 week history of increasing shortness of breath. No fever or chills. No hemoptysis. His x-ray showed basilar atelectasis. There is a lobulated 2 cm right lung nodule at the base. CT angiogram revealed markedly right axillary adenopathy. Marketed extensive mediastinal adenopathy. Right apical parenchymal pleural changes. 3 cm left adrenal nodule noted. There is nonocclusive subsegmental pulmonary emboli in the right lower lobe and she was admitted for the same. She was initiated on a heparin drip. Count 11.5. Hemoglobin 12.0. Platelets 412. Sodium 136. Potassium 4.8. Bicarb 22. BUN 18. Creatinine 0.71. Influenza s creen negative. RSV screen negative. COVID-19 screen negative. She is seen today in consultation on the regular medical floor. She is sitting up in bed. Awake and alert. Maintaining good O2 saturations in the 90s on room air. She's afebrile. Hemodynamically stable. The patient is seen today 03/28/2023 in follow-up on the regular medical floor. She is resting comfortable in bed. Awake and alert in no acute distress. Denies any worsening shortness breath, cough or congestion. No hemoptysis. Maintaining O2 saturation in the 90s on 2 L/m per nasal cannula. She's been transitioned to Eliquis. The patient is seen today 03/29/2023 in follow-up on the regular medical floor. She is awake and alert in no acute distress. Maintaining O2 saturations in the 90s on 2 L/m per nasal cannula. Denies any worsening shortness of breath, cough or congestion. No hemoptysis. She's been transitioned to Eliquis. Dopplers of the lower extremity negative for DVT. Objective - Vital Signs Vital signs: Vital Signs Temp 98.9 F 03/29/23 11:42 Pulse 91 09/25/23 11:42 Resp 18 03/29/23 11:42 BP 109/60 03/29/23 11:42 Pulse Ox 99 03/29/23 11:45 FiO2 Intake & Output 03/28/23 03/29/23 03/29/23 18:59 06:59 18:59 Other: Voiding Method Toilet # Voids 3 1 1 - Exam GENERAL EXAM: Alert, 68-year-old female, on 2 L nasal cannula, comfortable in no apparent distress. HEAD: Normocephalic. EYES: Normal reaction of pupils, equal size. NOSE: Clear with pink turbinates. THROAT: No erythema or exudates. NECK: No masses, no JVD. CHEST: No chest wall deformity. LUNGS: Equal air entry with no crackles, wheeze, rhonchi or dullness. CVS: S1 and S2 normal with no audible murmur, regular rhythm. ABDOMEN: No hepatosplenomegaly, normal bowel sounds, no guarding or rigidity. SPINE: No scoliosis or deformity SKIN: No rashes CENTRAL NERVOUS SYSTEM: No focal deficits, tone is normal in all 4 extremities. EXTREMITIES: There is no peripheral edema. No clubbing, no cyanosis. Peripheral pulses are intact. - Labs CBC & Chem 7: 03/27/23 03:11 03/26/23 15:53 Assessment and Plan Assessment: Dyspnea secondary to a small nonocclusive subsegmental pulmonary emboli in the right lower lobe History of stage IV lung cancer since October 2021 with known markedly right axillary adenopathy and hilar/mediastinal adenopathy along with a left adrenal mass and mild upper abdominal adenopathy. Currently in clinical trials with [facility] Former smoker however quit 10 years ago Hypothyroidism Hyperlipidemia History of depression Plan: The patient was seen and evaluated Medications reviewed Anticoagulated with Eliquis Cleared for discharge from the pulmonary standpoint Follow closely with her oncologist in [place] I have personally seen and examined the patient, performed the documentation and the assessment and plan as written. Number of minutes spent on the visit: 10.
[2023-03-29 14:24] VITALS: PULSE 101
== END 2023-03-29 16:44 | disposition home or self-care (01) | DRG 175 ==
LOC: EC 15:12 → 5NMEDONC 19:02
PROVIDERS: ADMIT Family Medicine; ATTEND Family Medicine
DX: I26.93 Single subsegmental thrombotic pulmonary embolism without acute cor pulmonale (principal); J96.01 Acute respiratory failure with hypoxia; C79.70 Secondary malignant neoplasm of unspecified adrenal gland; C34.90 Malignant neoplasm of unspecified part of unspecified bronchus or lung; E27.8 Other specified disorders of adrenal gland; E03.9 Hypothyroidism, unspecified; F32.A Depression, unspecified; D72.829 Elevated white blood cell count, unspecified; R59.0 Localized enlarged lymph nodes; E78.5 Hyperlipidemia, unspecified; Z20.822 Contact with and (suspected) exposure to COVID-19; Z96.653 Presence of artificial knee joint, bilateral; Z79.899 Other long term (current) drug therapy; Z79.890 Hormone replacement therapy; Z87.891 Personal history of nicotine dependence; Z91.048 Other nonmedicinal substance allergy status; Z92.21 Personal history of antineoplastic chemotherapy
CPT/HCPCS: 36415; 71275; 80053; 83605; 83880; 84484; 85025; 85379; 85610; 85730; 87636; 93005; 93970; 94760; 96365; 96366; 99285

== ENCOUNTER 2023-05-22 13:49 | Emergency (ER) | payer MEDICARE ==
[2023-05-22 14:32] VITALS: TEMP 98.9
--- NOTE | 2023-05-22 16:18 | ED ---
General Adult HPI - General Chief complaint: Recheck/Abnormal Lab/Rx Stated complaint: Needs port flushed Time Seen by Provider: 05/22/23 14:30 Source: patient, RN notes reviewed Mode of arrival: wheelchair Limitations: no limitations - History of Present Illness Initial comments: 68-year-old female presents to the emergency department chief complaint of port issue. Patient states that she was recently admitted to the hospital and they accessed her port for an MRI. She states that the port was not flushed following this and she is very concerned she will not be able to receive her chemo treatment. She is worried that it is going to become clotted. She denies any physical complaints at this time. - Related Data Home Medications Medication Instructions Recorded Confirmed Atorvastatin [Lipitor] 20 mg PO HS 03/02/18 03/26/23 Escitalopram Oxalate [Lexapro] 20 mg PO DAILY 02/24/21 03/26/23 Levothyroxine Sodium [Synthroid] 75 mcg PO DAILY 03/26/23 03/26/23 Previous Rx's Medication Instructions Recorded Apixaban Initiation Dose--VTE 5 mg PO BID #74 tab 03/29/23 [Eliquis Initiation Dosing for VTE Treatment] Apixaban [Eliquis] 10 mg PO BID tab 03/29/23 Allergies Allergy/AdvReac Type Severity Reaction Status Date / Time nickel Allergy Rash/Hives Verified 05/22/23 14:28 METAL Allergy ITCHING Uncoded 05/22/23 14:28 AND RASH Review of Systems ROS Statement: Those systems with pertinent positive or pertinent negative responses have been documented in the HPI. ROS Other: All systems not noted in ROS Statement are negative. Past Medical History Past Medical History: Cancer, Hyperlipidemia Additional Past Medical History / Comment(s): Lung History of Any Multi-Drug Resistant Organisms: None Reported Past Surgical History: Joint Replacement, Orthopedic Surgery Additional Past Surgical History / Comment(s): Roni knee replacements. BILAT BUNIONECTOMY. COLONOSCOPY AND EGD, Zahra fundoplication Past Anesthesia/Blood Transfusion Reactions: Postoperative Nausea & Vomiting (PO NV) Past Psychological History: No Psychological Hx Reported Smoking Status: Former smoker Past Alcohol Use History: None Reported Past Drug Use History: None Reported - Past Family History Mother Family Medical History: No Reported History General Exam - General Exam Comments Initial Comments: Physical Exam Vital signs reviewed General: Well-appearing, nontoxic, no acute distress. Head: Normocephalic, atraumatic Eyes: PERRLA, EOMI ENT: Airway patent Chest: Nonlabored breathing, cardiac regular rate and rhythm, lungs clear to auscultation bilaterally, skin overlying port appears nonerythematous, nontender Skin: No visual rash, normal skin tone Neuro: Alert and oriented 3 Musculoskeletal: No gross abnormalities Limitations: no limitations Course Vital Signs 05/22/23 05/22/23 14:25 16:40 Temperature 98.9 F 98.9 F Pulse Rate 100 92 Respiratory 20 18 Rate Blood Pressure 127/76 124/58 O2 Sat by Pulse 95 97 Oximetry Medical Decision Making - Medical Decision Making Was pt. sent in by a medical professional or institution (, [facility], [facility], urgent care, hospital, or care home...) When possible be specific @ -No Did you speak to anyone other than the patient for history (EMS, parent, family, police, friend...)? What history was obtained from this source @ -No Did you review nursing and triage notes (agree or disagree)? Why? @ -I reviewed and agree with nursing and triage notes Were old charts reviewed (outside hosp., previous admission, EMS record, old EKG, old radiological studies, urgent care reports/EKG's, care home records)? Report findings @ -No old charts were reviewed Differential Diagnosis (chest pain, altered mental status, abdominal pain women, abdominal pain men, vaginal bleeding, weakness, fever, dyspnea, syncope, headache, dizziness, GI bleed, back pain, seizure, CVA, palpatations, mental health, musculoskeletal)? @ -not applicable EKG interpreted by me (3pts min.). @ -None X-rays interpreted by me (1pt min.). @ -None done CT interpreted by me (1pt min.). @ -None done U/S interpreted by me (1pt. min.). @ -None done What testing was considered but not performed or refused? (CT, X-rays, U/S, labs)? Why? @ -None What meds were considered but not given or refused? Why? @ -None Did you discuss the management of the patient with other professionals (professionals i.e. , [facility], [facility], lab, RT, psych nurse, director social service, blockers skiver, teacher, security officer, case planner)? Give summary @ -No Was smoking cessation discussed for >3mins.? @ -No Was critical care preformed (if so, how long)? @ -No Were there social determinants of health that impacted care today? How? (Homelessness, low income, unemployed, alcoholism, drug addiction, transportation, low edu. Level, literacy, decrease access to med. care, residential, rehab)? @ -No Was there de-escalation of care discussed even if they declined (Discuss DNR or withdrawal of care, Hospice)? DNR status @ -No What co-morbidities impacted this encounter? (DM, HTN, Smoking, COPD, CAD, Cancer, CVA, ARF, Chemo, Hep., AIDS, mental health diagnosis, sleep apnea, morbid obesity)? @ -None Was patient admitted / discharged? Hospital course, mention meds given and r oute, prescriptions, significant lab abnormalities, going to OR and other pertinent info. @ -Discharge. Patient presented to the emergency department for chief complaint of port issue. She states that her port was not flushed after it was used yesterday. Discussed with patient the risks versus benefits of accessing the port again to flush it. Including the risk of infection. Patient wished to go forward with the flush. Heparin lock was performed by nursing staff. Patient discharged home in stable condition. Undiagnosed new problem with uncertain prognosis? @ -No Drug Therapy requiring intensive monitoring for toxicity (Heparin, Nitro, Insulin, Cardizem)? @ -No Were any procedures done? @ -No Diagnosis/symptom? @ -port flush Acute, or Chronic, or Acute on Chronic? @ -Acute Uncomplicated (without systemic symptoms) or Complicated (systemic symptoms)? @ -Uncomplicated Side effects of treatment? @ -No Exacerbation, Progression, or Severe Exacerbation? @ -No Poses a threat to life or bodily function? How? (Chest pain, USA, RI, pneumonia, PE, COPD, DKA, ARF, appy, cholecystitis, CVA, Diverticulitis, Homicidal, Suicidal, threat to staff... and all critical care pts) @ -No Disposition Clinical Impression: Port-A-Cath in place Disposition: HOME SELF-CARE Condition: Stable Is patient prescribed a controlled substance at d/c from ED?: No Referrals: Shantanu Jaquez DO [Primary Care Provider] - 1-2 days
[2023-05-22 16:55] VITALS: BP 124/58; PULSE 92; RESP 18
== END 2023-05-22 16:20 | disposition home or self-care (01) ==
LOC: EC 13:49
DX: Z45.2 Encounter for adjustment and management of vascular access device (principal); E78.5 Hyperlipidemia, unspecified; Z79.899 Other long term (current) drug therapy; Z91.048 Other nonmedicinal substance allergy status; Z87.891 Personal history of nicotine dependence
CPT/HCPCS: 99283; 96374; J1642

== ENCOUNTER 2023-08-29 10:48 | Emergency (ER) | payer MEDICARE ==
[2023-08-29 11:09] VITALS: RESP 18
--- NOTE | 2023-08-29 11:13 | ED ---
SOB HPI - General Chief Complaint: Shortness of Breath Stated Complaint: SOB Time Seen by Provider: 08/29/23 11:11 Source: patient, family, RN notes reviewed Mode of arrival: ambulatory Limitations: no limitations - History of Present Illness Initial Comments: Patient is a 68-year-old female presented to ER with a chief complaint of shortness of breath. Patient currently is undergoing chemotherapy for lung cancer. Last treatment was about 6 weeks ago as she is due for her next treatment on Wednesday. Patient follows up with a physician out of [facility] in [place]. Patient states once 08-24-2023, she has been having difficulty breathing and increase in wheezing. She was seen by urgent care in [place] and received antibiotics and steroids. She returned a day later after being first seen and received a breathing treatments. She returned to [place] having no improvement in her symptoms which brought her to the ER today. She also was endorsing decreased appetite with nausea. Denies vomiting. She reports she has been taking Zofran with relief of her symptoms. Denies any home O2 use denies any fevers, chills, night sweats, chest pain, abdominal pain, peripheral edema. - Related Data Home Medications Medication Instructions Recorded Confirmed Atorvastatin [Lipitor] 20 mg PO HS 03/02/18 03/26/23 Escitalopram Oxalate [Lexapro] 20 mg PO DAILY 02/24/21 03/26/23 Levothyroxine Sodium [Synthroid] 75 mcg PO DAILY 03/26/23 03/26/23 Previous Rx's Medication Instructions Recorded Apixaban Initiation Dose--VTE 5 mg PO BID #74 tab 03/29/23 [Eliquis Initiation Dosing for VTE Treatment] Apixaban [Eliquis] 10 mg PO BID tab 03/29/23 Allergies Allergy/AdvReac Type Severity Reaction Status Date / Time nickel Allergy Rash/Hives Verified 08/29/23 11:01 METAL Allergy ITCHING Uncoded 08/29/23 11:01 AND RASH Review of Systems ROS Statement: Those systems with pertinent positive or pertinent negative responses have been documented in the HPI. ROS Other: All systems not noted in ROS Statement are negative. Past Medical History Past Medical History: Cancer, Hyperlipidemia Additional Past Medical History / Comment(s): Lung History of Any Multi-Drug Resistant Organisms: None Reported Past Surgical History: Joint Replacement, Orthopedic Surgery Additional Past Surgical History / Comment(s): Roni knee replacements. BILAT BUNIONECTOMY. COLONOSCOPY AND EGD, Zahra fundoplication Past Anesthesia/Blood Transfusion Reactions: Postoperative Nausea & Vomiting (PONV) Past Psychological History: No Psychological Hx Reported Smoking Status: Former smoker Past Alcohol Use History: None Reported Past Drug Use History: None Reported - Past Family History Mother Family Medical History: No Reported History General Exam Limitations: no limitations General appearance: alert, in no apparent distress Head exam: Present: atraumatic, normocephalic, normal inspection Eye exam: Present: normal appearance, PERRL, EOMI. Absent: scleral icterus, conjunctival injection, periorbital swelling ENT exam: Present: normal exam, mucous membranes moist, other (Thick white plaque that scraped off with red underneath.) Neck exam: Present: normal inspection. Absent: tenderness, meningismus, lymphadenopathy Respiratory exam: Present: wheezes (Bilaterally) Cardiovascular Exam: Present: regular rate, normal rhythm, normal heart sounds. Absent: systolic murmur, diastolic murmur, rubs, gallop, clicks GI/Abdominal exam: Present: soft, normal bowel sounds. Absent: distended, tenderness, guarding, rebound, rigid Extremities exam: Present: normal inspection, full ROM, normal capillary refill. Absent: tenderness, pedal edema, joint swelling, calf tenderness Neurological exam: Present: alert, oriented X3, CN II-XII intact Psychiatric exam: Present: normal affect, normal mood Skin exam: Present: warm, dry, intact, normal color. Absent: rash Course Vital Signs 08/29/23 08/29/23 08/29/23 10:58 11:31 11:42 Temperature 98 F Pulse Rate 96 90 96 Respiratory 18 Rate Blood Pressure 128/80 O2 Sat by Pulse 97 Oximetry 08/29/23 08/29/23 08/29/23 12:50 13:37 14:07 Temperature 98.1 F Pulse Rate 92 90 92 Respiratory 18 18 18 Rate Blood Pressure 132/69 112/77 109/73 O2 Sat by Pulse 98 95 96 Oximetry Medical Decision Making - Medical Decision Making Was pt. sent in by a medical professional or institution (, PA, DREDGE PIPE OPERATOR, urgent care, hospital, or halfway...) When possible be specific @ -No Did you speak to anyone other than the patient for history (EMS, parent, family, police, friend...)? What history was obtained from this source @ -Sister providing HPI Did you review nursing and triage notes (agree or disagree)? Why? @ -I reviewed and agree with nursing and triage notes Were old charts reviewed (outside hosp., previous admission, EMS record, old EKG, old radiological studies, urgent care reports/EKG's, halfway records)? Report findings @ -No old charts were reviewed Differential Diagnosis (chest pain, altered mental status, abdominal pain women, abdominal pain men, vaginal bleeding, weakness, fever, dyspnea, syncope, headache, dizziness, GI bleed, back pain, seizure, CVA, palpatations, mental health, musculoskeletal)? @ -Differential Dyspnea: Coronary syndrome, arrhythmia, tamponade, asthma, COPD, pulmonary embolism, pneumonia, pneumothorax, pulmonary effusion, anaphylaxis, diabetic ketoacidosis, flailed chest, pulmonary contusion, diaphragmatic rupture, anemia, neuromuscular, this is not meant to be an all-inclusive list. EKG interpreted by me (3pts min.). @ -As above X-rays interpreted by me (1pt min.). @ -[Chest x-ray interpreted by me shows no acute cardiopulmonary process. CT interpreted by me (1pt min.). @ -None done U/S interpreted by me (1pt. min.). @ -None done What testing was considered but not performed or refused? (CT, X-rays, U/S, labs)? Why? @ -None What meds were considered but not given or refused? Why? @ -None Did you discuss the management of the patient with other professionals (professionals i.e. , PA, DREDGE PIPE OPERATOR, lab, RT, psych nurse, social welfare administrator, bridge construction inspector, teacher, [employer] officer, pillowcase cleaner)? Give summary @ -No Was smoking cessation discussed for >3mins.? @ -No Was critical care preformed (if so, how long)? @ -No Were there social determinants of health that impacted care today? How? (Homelessness, low income, unemployed, alcoholism, drug addiction, transportation, low edu. Level, literacy, decrease access to med. care, [facility], rehab)? @ -No Was there de-escalation of care discussed even if they declined (Discuss DNR or withdrawal of care, Hospice)? DNR status @ -No What co-morbidities impacted this encounter? (DM, HTN, Smoking, COPD, CAD, Cancer, CVA, ARF, Chemo, Hep., AIDS, mental health diagnosis, sleep apnea, morbid obesity)? @ -Cancer Was patient admitted / discharged? Hospital course, mention meds given and route, prescriptions, significant lab abnormalities, going to OR and other pertinent info. @ -Discharge. Patient is a 68-year-old female presented to ER with chief complaint of dyspnea. Patient does have a history and is currently being treated for lung cancer. History and physical exam were completed. Vital stab le. Patient's oxygen saturation mid to high 90s throughout stay in the ER. Patient no signs of acute distress and nontoxic-appearing. Bilateral inspiratory wheezing present. Patient was mildly anxious on exam. Labs obtained significant for white blood cell count 16.8. CMP ordered not completed as specimen hemolyzed and patient refused another needlestick. RSV positive. COVID and influenza negative. Chest x-ray interpreted by me shows no acute cardiopulmonary process. EKG without signs of acute infarct or ischemia. Patient received nebulized albuterol treatment in the ER with improvement of bilateral wheezing. I discussed results with patient and admission was offered. Patient refused admission and stated she would like to go home as she has follow-up with oncologist tomorrow. Patient received Tylenol, Zofran, Decadron for symptom control in the ER. Upon reevaluation, patient stated she would like to go home and feels better. Strict return parameters were discussed. Patient be discharged stable condition with follow-up to PCP/oncology. Patient expressed understanding and agreement with care plan. Undiagnosed new problem with uncertain prognosis? @ -No Drug Therapy requiring intensive monitoring for toxicity (Heparin, Nitro, Insulin, Cardizem)? @ -No Were any procedures done? @ -No Diagnosis/symptom? @ -RSV/viral sinusitis/lung cancer Acute, or Chronic, or Acute on Chronic? @ -acute Uncomplicated (without systemic symptoms) or Complicated (systemic symptoms)? @ -Uncomplicated Side effects of treatment? @ -No Exacerbation, Progression, or Severe Exacerbation? @ -No Poses a threat to life or bodily function? How? (Chest pain, USA, PR, pneumonia, PE, COPD, DKA, ARF, appy, cholecystitis, CVA, Diverticulitis, Homicidal, Suicidal, threat to staff... and all critical care pts) @ -No - Lab Data Result diagrams: 08/29/23 11:28 Lab Results 08/29/23 08/29/23 Range/Units 11:28 11:28 WBC 16.8 H (3.8-10.6) k/uL RBC 3.88 (3.80-5.40) m/uL Hgb 11.8 (11.4-16.0) gm/dL Hct 37.1 (34.0-46.0) % MCV 95.6 (80.0-100.0) fL MCH 30.4 (25.0-35.0) pg MCHC 31.8 (31.0-37.0) g/dL RDW 18.4 H (11.5-15.5) % Plt Count 533 H (150-450) k/uL MPV 8.0 Hypochromasia Slight Anisocytosis Slight Macrocytosis Slight Influenza Type A (PCR) Not Detected (Not Detectd) Influenza Type B (PCR) Not Detected (Not Detectd) RSV (PCR) Detected A (Not Detectd) SARS-CoV-2 (PCR) Not Detected (Not Detectd) - EKG Data -: EKG Interpreted by Pa EKG Comments: EKG taken at 11: 13 shows normal sinus rhythm with no acute ST segment or T wave abnormalities. Ventricular rate 89, MA interval 132, QRS duration 94, QT/QTc 349/395. - Radiology Data Radiology results: report reviewed, image reviewed Disposition Clinical Impression: RSV (respiratory syncytial virus infection), Viral sinusitis, Nausea, Lung cancer Disposition: HOME SELF-CARE Condition: Stable Additional Instructions: Please follow-up with oncologist and primary care soon as possible. Return to the ER for any new or worsening symptoms. Is patient prescribed a controlled substance at d/c from ED?: No Referrals: Shantanu Jaquez DO [Primary Care Provider] - 1-2 days Time of Disposition: 13:51
[2023-08-29] MEDS: ALBUTEROL NEBULIZED 2.5 MG/3 ML INHALATION STA (11:31)
[2023-08-29 12:01] LABS: Anisocytosis Slight; HCT 37.1 % (34.0-46.0); HGB 11.8 gm/dL (11.4-16.0); Hypochromasia Slight; MCH 30.4 pg (25.0-35.0); MCHC 31.8 g/dL (31.0-37.0); MCV 95.6 fL (80.0-100.0); Macrocytosis Slight; Platelet Count 533 k/uL (150-450); RBC 3.88 m/uL (3.80-5.40); RDW 18.4 % (11.5-15.5); WBC 16.8 k/uL (3.8-10.6)
--- NOTE | 2023-08-29 12:12 | XR ---
EXAMINATION TYPE: XR chest 2V DATE OF EXAM: 08/29/2023 11:59 AM CLINICAL INDICATION:Female, 68 years old with history of wheezing; COMPARISON: Chest radiographs from 03/26/2023 TECHNIQUE: XR chest 2V Frontal and lateral views of the chest. FINDINGS: Lungs/Pleura: There is no evidence of pleural effusion, focal consolidation, or pneumothorax. Pulmonary vascularity: Unremarkable. Heart/mediastinum: Cardiomediastinal silhouette is unremarkable. Musculoskeletal: No acute osseous pathology. Other findings: None Lines/Tubes: [id number] projecting over the right hemithorax with distal tip at the cavoatrial junction. IMPRESSION: 1. No acute cardiopulmonary disease process. 2. COPD changes.
[2023-08-29] MEDS: ONDANSETRON 4 MG/2 ML VIAL IVP STA (12:41)
[2023-08-29] MEDS: SODIUM CHLORIDE 0.9% 1,000 ML IV STA (12:41)
[2023-08-29] MEDS: DEXAMETHASONE SOD PHOSPHATE 4 MG/ML 1 ML VIAL IVP STA (13:31)
[2023-08-29] MEDS: ACETAMINOPHEN IV (For NPO) 1,000 MG in EMPTY BAG 1 BAG IVPB STA (13:31)
[2023-08-29 14:43] VITALS: BP 109/73; PULSE 92; TEMP 98.1
== END 2023-08-29 14:07 | disposition home or self-care (01) ==
LOC: EC 10:48
DX: J32.9 Chronic sinusitis, unspecified (principal); C34.90 Malignant neoplasm of unspecified part of unspecified bronchus or lung; B97.4 Respiratory syncytial virus as the cause of diseases classified elsewhere; R11.0 Nausea; E78.5 Hyperlipidemia, unspecified; Z87.891 Personal history of nicotine dependence; Z20.822 Contact with and (suspected) exposure to COVID-19; Z79.899 Other long term (current) drug therapy; Z88.8 Allergy status to other drugs, medicaments and biological substances
CPT/HCPCS: 36415; 94640; 93005; 85027; 87636; 71046; 99285; 96365; 96375 ×2; 96361; J1100; J2405; J0131